=== PATIENT | male | born 1945 | race Caucasian/White ===

== ENCOUNTER 2016-08-07 14:36 | Inpatient (IN) | payer OTHER ==
[~2016-08-07] VITALS: Ht 172.7 cm; Wt 74.8 kg
[~2016-08-07 14:36] MED LIST: ACYC5OIN3 EXT; AMOX500T PO; ASPEC325 PO; CARV6.252 PO; FOLI1TAB7 PO; LISINOPRIL PO; SIMV20TA5 PO; TRIA0.1C55
[2016-08-07] MEDS ORDERED: SODIUM CHLORIDE 0.9% 1000ML 1,000 ML IV SCH (15:05)
--- NOTE | 2016-08-07 15:09 | EMERGENCY ROOM VISIT NOTE ---
History Report prepared by Anya: Ezra Mann Under the Supervision of: Dr. Joel Weiss D.O. First contact with patient: 14:59 Chief Complaint: EYE ASSESSMENT Stated Complaint: LEFT EYE History of Present Illness The patient is a 71 year old male who presents to the Emergency Room with complaints of persistent left eye vision abnormalities that started around 0800 this morning. He saw an bushel worker this morning, and had his eyes dilated. The patient was told to come here to get a scan done. The patient says that his vision is blurry in that eye, and he has been getting double vision as well. He denies any headaches, nausea, vomiting, fevers, chills, abdominal pain, or weakness in his arms or legs. The patient has an enlarged mitral valve, and takes Lisinopril daily. He does not use tobacco products or drink alcohol. Source of History: patient, spouse/significant other Onset: Around 0800 this morning Position: eye (left) Quality: other (vision abnormaliteis - blurry and double vision) Timing: other (persistent) Associated Symptoms: No abdominal pain, No chills, No fevers, No headache, No nausea, No vomiting, No weakness (arms or legs) Note: No other associated symptoms noted. Review of Systems See HPI for pertinent positives & negatives. A total of 10 systems reviewed and were otherwise negative. Past Medical & Surgical Medical Problems: (1) Enlarged mitral valve (2) Lupus Family History Cancer Social History Smoking Status: Never Smoker Drug Use: none Marital Status: single Housing Status: lives alone Occupation Status: retired, other Current/Historical Medications Scheduled Aspirin (Aspirin Ec), 81 MG PO DAILY Carvedilol (Coreg), 6.25 MG PO BID Simvastatin (Zocor), 20 MG PO QPM [Lisinopril ], 20 MG PO BID Allergies Coded Allergies: Bee Venom (Verified Allergy, Severe, SWELLING AT SITE, 08/07/16) Lysine (Verified Allergy, Mild, RASH, 01/10/16) Physical Exam Vital Signs Date Time Temp Pulse Resp B/P Pulse Ox O2 Delivery O2 Flow Rate FiO2 08/07/16 18:06 70 18 143/81 99 Room Air 08/07/16 17:43 36.8 72 16 124/73 08/07/16 16:18 72 16 124/73 98 Room Air 5/18/17 16:02 70 08/07/16 15:35 69 16 128/69 97 Room Air 08/07/16 15:35 97 Room Air 08/07/16 14:39 36.8 82 20 120/78 96 Room Air Physical Exam GENERAL: Patient is awake, alert, and in no acute distress. Patient is resting comfortably and showing no signs of anxiety EYES: Pupils dilated and minimally reactive to light consistent with patient's recent ophthalmologic exam. Patient had inability to look inward with left eye. Patient was able to look upward and minimally downward with left eye. EARS, NOSE, MOUTH AND THROAT: The nose is without any evidence of any deformity. Mucous membranes are moist tongue is midline NECK: The neck is nontender and supple. No Bruit's noted to auscultation. RESPIRATORY: Normal respiratory effort is noted there is no evidence of wheezing rhonchi or rales CARDIOVASCULAR: Regular rate and rhythm noted there, systolic murmur appreciated. GASTROINTESTINAL: The abdomen is soft. Bowel sounds are present in all quadrants. Abdomen is nontender MUSCULOSKELETAL/EXTREMITIES: There is no evidence of gross deformity full range of motion is noted in the hips and shoulders SKIN: No pedal edema. NEUROLOGIC: Patient is awake alert and oriented x3. No facial droop noted. Patellar tendon reflexes were 2+ bilaterally. Medical Decision & Procedures ER Provider Diagnostic Interpretation: Radiology results as stated below per my review and radiologist interpretation: HEAD CTA HISTORY: Mental status change Stroke TECHNIQUE: Multiaxial CT images of the head were performed both before and after the intravenous administration of contrast to evaluate the major cerebral vessels. Maximum intensity projection images were also obtained. COMPARISON: None. FINDINGS: Potential subacute left periventricular infarct left occipital lobe. No evidence for acute intracranial hemorrhage. Visualized intracranial internal carotid arteries, distal vertebral arteries, and basilar artery are widely patent. There is no significant stenosis, occlusion, or aneurysm seen within the bilateral ACAs, MCAs, or stock raiser. IMPRESSION: No significant stenosis, occlusion, or aneurysm within the [place]. Possible subacute infarct left occipital lobe. Mild chronic small vessel change. No acute intracranial hemorrhage. Electronically signed by: Reno Parker M.D. 08/07/2016 4:55 PM Dictated Date/Time: 08/07/2016 4:51 PM CHEST ONE VIEW PORTABLE CLINICAL HISTORY: Stroke COMPARISON STUDY: No previous studies for comparison. FINDINGS: The heart is at the upper limits of normal in size. There is no failure. There is no lobar consolidation. Slightly prominent right basilar markings are felt to be atelectatic.[ IMPRESSION: AP portable study. No acute findings. Electronically signed by: Jack Pritchett M.D. 08/07/2016 3:26 PM Dictated Date/Time: 08/07/2016 3:26 PM NECK CTA HISTORY: Mental status change stroke TECHNIQUE: Multiaxial CT images of the neck were performed following the intravenous administration of contrast to evaluate the major cervical vessels. Maximum intensity projection images were also obtained. All measurements were calculated based on NASCET criteria. COMPARISON STUDY: None. FINDINGS: The aortic arch and proximal great vessels are widely patent. There is no significant stenosis, occlusion, or dissection identified within the bilateral common carotid, internal carotid, or vertebral arteries. Mild atherosclerotic change carotid bifurcations IMPRESSION: No significant stenosis, occlusion, or dissection identified within the carotid or vertebral arteries. Mild scattered atherosclerotic change Electronically signed by: Reno Parker M.D. 08/07/2016 4:57 PM Dictated Date/Time: 08/07/2016 4:57 PM Laboratory Results 08/07/16 15:17 Red Blood Count 4.51, Mean Corpuscular Volume 89.6, Mean Corpuscular Hemoglobin 30.6, Mean Corpuscular Hemoglobin Concent 34.2, Mean Platelet Volume 9.7, Neutrophils (%) (Auto) 61.1, Lymphocytes (%) (Auto) 24.1, Monocytes (%) (Auto) 10.3, Eosinophils (%) (Auto) 2.9, Basophils (%) (Auto) 0.4, Neutrophils # (Auto ) 2.96, Lymphocytes # (Auto) 1.17, Monocytes # (Auto) 0.50, Eosinophils # (Auto ) 0.14, Basophils # (Auto) 0.02 08/07/16 15:17 Test 08/07/16 15:17 White Blood Count 4.85 K/uL (4.8-10.8) Red Blood Count 4.51 M/uL (4.7-6.1) Hemoglobin 13.8 g/dL (14.0-18.0) Hematocrit 40.4 % (42-52) Mean Corpuscular Volume 89.6 fL (80-100) Mean Corpuscular Hemoglobin 30.6 pg (25-34) Mean Corpuscular Hemoglobin Concent 34.2 g/dl (32-36) Platelet Count 161 K/uL (130-400) Mean Platelet Volume 9.7 fL (7.4-10.4) Neutrophils (%) (Auto) 61.1 % Lymphocytes (%) (Auto) 24.1 % Monocytes (%) (Auto) 10.3 % Eosinophils (%) (Auto) 2.9 % Basophils (%) (Auto) 0.4 % Neutrophils # (Auto) 2.96 K/uL (1.4-6.5) Lymphocytes # (Auto) 1.17 K/uL (1.2-3.4) Monocytes # (Auto) 0.50 K/uL (0.11-0.59) Eosinophils # (Auto) 0.14 K/uL (0-0.5) Basophils # (Auto) 0.02 K/uL (0-0.2) RDW Standard Deviation 44.6 fL (36.4-46.3) RDW Coefficient of Variation 13.5 % (11.5-14.5) Immature Granulocyte % (Auto) 1.2 % Immature Granulocyte # (Auto) 0.06 K/uL (0.00-0.02) Red Blood Cell Morphology Unremarkable Prothrombin Time 11.4 SECONDS (9.0-12.0) Prothromb Time International Ratio 1.1 (0.9-1.1) Activated Partial Thromboplast Time 33.6 SECONDS (21.0-31.0) Partial Thromboplastin Ratio 1.3 Anion Gap 10.0 mmol/L (3-11) Est Creatinine Clear Calc Drug Dose 56.2 ml/min Estimated GFR () 71.1 Estimated GFR (Non- 61.3 BUN/Creatinine Ratio 22.9 (10-20) Calcium Level 9.0 mg/dl (8.5-10.1) Total Bilirubin 0.7 mg/dl (0.2-1) Direct Bilirubin 0.2 mg/dl (0-0.2) Aspartate Amino Transf (AST/SGOT) 22 U/L (15-37) Alanine Aminotransferase (ALT/SGPT) 28 U/L (12-78) Alkaline Phosphatase 78 U/L (45-117) Total Creatine Kinase 86 U/L (39-308) Creatine Kinase MB 2.4 ng/ml (0.5-3.6) Creatine Kinase MB Ratio 2.8 (0-3.0) Troponin I 0.603 ng/ml (0-0.045) Total Protein 7.9 gm/dl (6.4-8.2) Albumin 3.4 gm/dl (3.4-5.0) Lyme Disease IgG Antibody NEG (NEG) Lyme Disease IgM Antibody NEG (NEG) Laboratory results per my review. Medications Administered Medications (Trade) Dose Ordered Sig/Apollo Route Start Time Stop Time Status Last Admin Dose Admin Sodium Chloride (Nss 1000ml) 1,000 ml @ 50 mls/hr Q20H IV 08/07/16 15:05 09/06/16 15:04 08/07/16 15:40 50 MLS/HR ECG Indication: other (left eye assessment) Rate (beats per minute): 74 Rhythm: normal sinus Findings: no ectopy, other (no acute ST segment abnormalities) Comparison ECG Date: no prior available ED Course 1500: The patient was evaluated in room B4B. A complete history and physical examination were performed. 1505: Ordered NSS 1000 ml @ 50 mls/hr IV. 1701: Ordered Aspirin Chew 324 mg PO. 1704: I reevaluated the patient and he is resting comfortably. The patient verbally expressed understanding and agreement with the treatment plan. The patient will be evaluated for further treatment. 1705: I discussed the patient with Dr. Jimenez - [facility] seismograph supervisor. He will evaluate the patient for further treatment. 1724: I discussed the patient with Dr. Satinder Pelaez [facility] neurology - she recommends a formal stroke workup. Medical Decision Prior records/ancillary studies reviewed and summarized above. Nursing notes reviewed. Differential diagnosis: Etiologies such as metabolic, infection, hypo/hyperglycemia, electrolyte abnormalities, cardiac sources, intracerebral event, toxicologic, neurologic, as well as others were entertained. The patient is a 71-year-old male who presented to the emergency department for an evaluation of diplopia. The patient noticed diplopia, as well as difficulty with his left eye. His morning. The patient had no other focal neurological is. He was sent to the ophthalmology despite his primary care physician. He was sent to the emergency department by the bushel worker for possible further evaluation. The patient had a CAT scan which showed an area of questionable occipital infarct. He was treated with aspirin in the emergency department. The left eye was patched and this helped with his symptoms somewhat. I discussed the patient's laboratory and radiographic studies with him. It is unclear if this is from an embolic phenomena, however, there is no occlusion noted on CT angiography of the brain. The patient does have a family history of factor V Leiden. The patient also has a history of valvular heart disease. It is possible he may have had an embolic phenomena or possibly paroxysmal atrial fibrillation. I discussed the patient's case with the on-call [facility] neurologist as well as the on-call [facility] hospitalist. They've agreed to evaluate the patient in emergency department for further management and disposition. I discussed the patient's laboratory and radiographic studies with him Consults Time Called: 1700 Consulting Physician: Dr. Tony BACK seismograph supervisor Returned Call: 1705 I discussed the patient with Dr. Tony BACK seismograph supervisor. He will evaluate the patient for further treatment. Additional Consults: Time Called: 1710 Consulted Physician: Dr. Satinder BACK neurology Returned Call: [phone] Additional Comments: I discussed the patient with Dr. Satinder BACK neurology - she recommends a formal stroke workup. Impression Primary Impression: Occipital stroke Additional Impressions: Diplopia Cranial nerve III palsy Elevated troponin Scribe Attestation The scribe's documentation has been prepared under my direction and personally reviewed by me in its entirety. I confirm that the note above accurately reflects all work, treatment, procedures, and medical decision making performed by me. Departure Information Dispostion Being Evaluated By Hospitalist Referrals Clarisa Hale PA-C (PCP) Patient Instructions My [facility] Problem Qualifiers Additional Impressions: Cranial nerve III palsy Laterality: left Qualified Codes: H49.02 - Third [oculomotor] nerve palsy, left eye
[2016-08-07] MEDS ORDERED: ASPI81TA28 PO (15:11)
--- NOTE | 2016-08-07 15:28 | DIAGNOSTIC IMAGING REPORT ---
CHEST ONE VIEW PORTABLE CLINICAL HISTORY: Stroke COMPARISON STUDY: No previous studies for comparison. FINDINGS: The heart is at the upper limits of normal in size. There is no failure. There is no lobar consolidation. Slightly prominent right basilar markings are felt to be atelectatic.[ IMPRESSION: AP portable study. No acute findings. Electronically signed by: Jack Pritchett M.D. 08/07/2016 3:26 PM Dictated Date/Time: 08/07/2016 3:26 PM
[2016-08-07 15:38] LABS: HEMATOCRIT 40.4 % (42-52); MEAN CELL VOLUME 89.6 fL (80-100); MEAN CORPUSCULAR HEMOGLOBIN 30.6 pg (25-34); MEAN CORPUSCULAR HGB CONC 34.2 g/dl (32-36); MEAN PLATELET VOLUME 9.7 fL (7.4-10.4); PLATELET COUNT 161 K/uL (130-400); RED BLOOD COUNT 4.51 M/uL (4.7-6.1); WHITE BLOOD COUNT 4.85 K/uL (4.8-10.8)
[2016-08-07 15:49] LABS: INR 1.1 (0.9-1.1); PARTIAL THROMBOPLASTIN RATIO 1.3; PROTHROMBIN TIME (PATIENT) 11.4 SECONDS (9.0-12.0)
[2016-08-07 16:03] LABS: BUN/CREATININE RATIO 22.9 (10-20); CREATININE 1.2 mg/dl (0.60-1.40); POTASSIUM 4.2 mmol/L (3.5-5.1)
[2016-08-07 16:09] LABS: BASO % 0.4 %; BASO ABS # 0.02 K/uL (0-0.2); COMPLETE YES; EOS % 2.9 %; IG% 1.2 %; LYMPH % 24.1 %; LYMPH ABS # 1.17 K/uL (1.2-3.4); MONO % 10.3 %; NEUT % 61.1 %
[2016-08-07 16:21] LABS: CKMB/CK RATIO 2.8 (0-3.0)
--- NOTE | 2016-08-07 16:56 | DIAGNOSTIC IMAGING REPORT ---
HEAD CTA HISTORY: Mental status change Stroke TECHNIQUE: Multiaxial CT images of the head were performed both before and after the intravenous administration of contrast to evaluate the major cerebral vessels. Maximum intensity projection images were also obtained. COMPARISON: None. FINDINGS: Potential subacute left periventricular infarct left occipital lobe. No evidence for acute intracranial hemorrhage. Visualized intracranial internal carotid arteries, distal vertebral arteries, and basilar artery are widely patent. There is no significant stenosis, occlusion, or aneurysm seen within the bilateral ACAs, MCAs, or drywall hanger helper. IMPRESSION: No significant stenosis, occlusion, or aneurysm within the [place]. Possible subacute infarct left occipital lobe. Mild chronic small vessel change. No acute intracranial hemorrhage. Electronically signed by: Reno Parker M.D. 08/07/2016 4:55 PM Dictated Date/Time: 08/07/2016 4:51 PM
--- NOTE | 2016-08-07 16:59 | DIAGNOSTIC IMAGING REPORT ---
NECK CTA HISTORY: Mental status change stroke TECHNIQUE: Multiaxial CT images of the neck were performed following the intravenous administration of contrast to evaluate the major cervical vessels. Maximum intensity projection images were also obtained. All measurements were calculated based on NASCET criteria. COMPARISON STUDY: None. FINDINGS: The aortic arch and proximal great vessels are widely patent. There is no significant stenosis, occlusion, or dissection identified within the bilateral common carotid, internal carotid, or vertebral arteries. Mild atherosclerotic change carotid bifurcations IMPRESSION: No significant stenosis, occlusion, or dissection identified within the carotid or vertebral arteries. Mild scattered atherosclerotic change Electronically signed by: Reno Parker M.D. 08/07/2016 4:57 PM Dictated Date/Time: 08/07/2016 4:57 PM
[2016-08-07] MEDS ORDERED: ASPIRIN 81 MG CHEW PO STA (17:01)
[2016-08-07 17:15] LABS: LYME DISEASE AB IGG NEG (NEG)
[2016-08-07 17:16] LABS: LYME DISEASE AB IGM NEG (NEG)
[2016-08-07 17:43] VITALS: BP 124/73; PULSE 72; TEMP 36.8; O2SAT 99; Ht 172.7 cm; Wt 74.8 kg
[2016-08-07] MEDS ORDERED: POLYETHYLENE (MIRALAX) 17 GM PACK PO PRN (18:30)
[2016-08-07] MEDS ORDERED: MAGNESIUM HYDROXIDE SUSP 30 ML UDC PO PRN (18:30)
[2016-08-07] MEDS ORDERED: ONDANSETRON INJ 2 MG/ML 2 ML VIAL IV PRN (18:30)
[2016-08-07] MEDS ORDERED: PHARMACIST DISCHARGE MED REC CONSULT PRN ×2 (18:30→19:15)
[2016-08-07] MEDS ORDERED: ALUMINUM/MAGNESIUM/SIMETH (MAALOX MAX) 30 ML UDC PO PRN (18:30)
--- NOTE | 2016-08-07 19:24 | History and Physical ---
History & Physical Date & Time of Service: August 07, 2016 at 18:41 Chief Complaint: Left Eye Primary Care Physician: Clarisa Hale PA-C History of Present Illness Source: patient 71 year old male with a PMH of cutaneous lupus and mitral regurgitation with a 1 day history of blurry vision. He says both his central and peripheral vision are affected. He did not experience any eye pain or any abnormal discharge from his eye He woke up this morning felt his normal self. Shortly after making a phone call to a family friend he started experiencing blurred vision. The change in vision was sudden. He then phoned his in-law to go to the doctor. When his in-law saw him she noticed that he his eye was looking out to the side. They went to their family doc who sent them to [facility] who then sent him into the emergency department. He didn't experience any headache, facial weakness, slurred speech, difficulty swallowing, arm weakness, leg weakness, neck stiffness, palpitations, chest pain , dizziness, shortness of breath, or cough. 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 Family History Cancer Father- 70's brain cancer Mother- 70's ovarian cancer Uncle- 70's stroke and [place] Aunt- 70's [place] and lung disease Brother- skin cancer Brother- Factor V leiden Nephew- Factor V leiden Social History Smoking Status: Never Smoker Alcohol Use: none Drug Use: none Marital Status: single Housing status: lives alone Occupational Status: retired, other Immunizations History of Influenza Vaccine: Unknown History of Tetanus Vaccine?: Unknown History of Pneumococcal: Yes History of Hepatitis B Vaccine: No Multi-Drug Resistant Organisms History of MDRO: No Allergies Coded Allergies: Bee Venom (Verified Allergy, Severe, SWELLING AT SITE, 08/07/16) Lysine (Verified Allergy, Mild, RASH, 01/10/16) Home Medications Scheduled Aspirin (Aspirin Ec), 81 MG PO DAILY Carvedilol (Coreg), 6.25 MG PO BID Simvastatin (Zocor), 20 MG PO QPM [Lisinopril ], 20 MG PO BID Review of Systems Please see HPI for ROS Physical Exam Vital Signs Date Time Temp Pulse Resp B/P Pulse Ox O2 Delivery O2 Flow Rate FiO2 08/07/16 18:06 70 18 143/81 99 Room Air 08/07/16 17:43 36.8 72 16 124/73 99 Room Air 08/07/16 16:18 72 16 124/73 98 Room Air 08/07/16 16:02 70 08/07/16 15:35 69 16 128/69 97 Room Air 08/07/16 15:35 97 Room Air 08/07/16 14:39 36.8 82 20 120/78 96 Room Air General Appearance: WD/WN, no apparent distress, + pertinent finding (patient with speech impediment, wearing a patch over left eye) Head: normocephalic, atraumatic Eyes: + abnormal EOM (patient unable to adduct left eye, unable to vertically gaze with left eye), + pertinent finding (pupils minimally reactive to light bilaterally, left eye directed down and out) ENT: hearing grossly normal, TMs normal Neck: supple, no adenopathy, thyroid normal, no JVD, no carotid bruits, trachea midline Respiratory/Chest: chest non-tender, lungs clear, normal breath sounds, no respiratory distress, no accessory muscle use Cardiovascular: regular rate, rhythm, no edema, no JVD, normal peripheral pulses, + diastolic murmur (best heard over the mitral valve, radiation to the axilla) Abdomen/GI: normal bowel sounds, non tender, soft, no organomegaly, no pulsatile mass Back: normal inspection, no CVA tenderness, no muscle spasm Extremities/Musculoskelatal: normal capillary refill, no pedal edema, + pertinent finding (has a bandage over left lower extremity for debridement of wood chip stuck in leg, surrounding erythema around bandage) Neurologic/Psych: forestry supervisor II-XII nml as tested, no motor/sensory deficits, alert, normal mood/affect, oriented x 3 Diagnostics Laboratory Results Results Past 24 Hours Test 08/07/16 15:17 Range/Units White Blood Count 4.85 4.8-10.8 K/uL Red Blood Count 4.51 4.7-6.1 M/uL Hemoglobin 13.8 14.0-18.0 g/dL Hematocrit 40.4 42-52 % Mean Corpuscular Volume 89.6 80-100 fL Mean Corpuscular Hemoglobin 30.6 25-34 pg Mean Corpuscular Hemoglobin Concent 34.2 32-36 g/dl Platelet Count 161 130-400 K/uL Mean Platelet Volume 9.7 7.4-10.4 fL Neutrophils (%) (Auto) 61.1 % Lymphocytes (%) (Auto) 24.1 % Monocytes (%) (Auto) 10.3 % Eosinophils (%) (Auto) 2.9 % Basophils (%) (Auto) 0.4 % Neutrophils # (Auto) 2.96 1.4-6.5 K/uL Lymphocytes # (Auto) 1.17 1.2-3.4 K/uL Monocytes # (Auto) 0.50 0.11-0.59 K/uL Eosinophils # (Auto) 0.14 0-0.5 K/uL Basophils # (Auto) 0.02 0-0.2 K/uL RDW Standard Deviation 44.6 36.4-46.3 fL RDW Coefficient of Variation 13.5 11.5-14.5 % Immature Granulocyte % (Auto) 1.2 % Immature Granulocyte # (Auto) 0.06 0.00-0.02 K/uL Red Blood Cell Morphology Unremarkable Prothrombin Time 11.4 9.0-12.0 SECONDS Prothromb Time International Ratio 1.1 0.9-1.1 Activated Partial Thromboplast Time 33.6 21.0-31.0 SECONDS Partial Thromboplastin Ratio 1.3 Sodium Level 141 136-145 mmol/L Potassium Level 4.2 3.5-5.1 mmol/L Chloride Level 108 98-107 mmol/L Carbon Dioxide Level 23 21-32 mmol/L Anion Gap 10.0 3-11 mmol/L Blood Urea Nitrogen 27 7-18 mg/dl Creatinine 1.20 0.60-1.40 mg/dl Est Creatinine Clear Calc Drug Dose 56.2 ml/min Estimated GFR () 71.1 Estimated GFR (Non- 61.3 BUN/Creatinine Ratio 22.9 10-20 Random Glucose 86 70-99 mg/dl Calcium Level 9.0 8.5-10.1 mg/dl Total Bilirubin 0.7 0.2-1 mg/dl Direct Bilirubin 0.2 0-0.2 mg/dl Aspartate Amino Transf (AST/SGOT) 22 15-37 U/L Alanine Aminotransferase (ALT/SGPT) 28 12-78 U/L Alkaline Phosphatase 78 45-117 U/L Total Creatine Kinase 86 39-308 U/L Creatine Kinase MB 2.4 0.5-3.6 ng/ml Creatine Kinase MB Ratio 2.8 0-3.0 Troponin I 0.603 0-0.045 ng/ml Total Protein 7.9 6.4-8.2 gm/dl Albumin 3.4 3.4-5.0 gm/dl Lyme Disease IgG Antibody NEG NEG Lyme Disease IgM Antibody NEG NEG Diagnostic Radiology CT angio of head COMPARISON STUDY: None. FINDINGS: The aortic arch and proximal great vessels are widely patent. There is no significant stenosis, occlusion, or dissection identified within the bilateral common carotid, internal carotid, or vertebral arteries. Mild atherosclerotic change carotid bifurcations IMPRESSION: No significant stenosis, occlusion, or dissection identified within the carotid or vertebral arteries. Mild scattered atherosclerotic change HEAD CTA HISTORY: Mental status change Stroke TECHNIQUE: Multiaxial CT images of the head were performed both before and after the intravenous administration of contrast to evaluate the major cerebral vessels. Maximum intensity projection images were also obtained. COMPARISON: None. FINDINGS: Potential subacute left periventricular infarct left occipital lobe. No evidence for acute intracranial hemorrhage. Visualized intracranial internal carotid arteries, distal vertebral arteries, and basilar artery are widely patent. There is no significant stenosis, occlusion, or aneurysm seen within the bilateral ACAs, MCAs, or director marketing communications. IMPRESSION: No significant stenosis, occlusion, or aneurysm within the [place]. Possible subacute infarct left occipital lobe. Mild chronic small vessel change. No acute intracranial hemorrhage. CXR normal Normal EKG Impression Assessment and Plan 71 year old male with a PMH of cutaneous lupus and mitral valve enlargement presented to [facility] with blurred vision and found to have a 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 Stroke - Given aspirin 325mg - Continue aspirin 81mg daily, will add plavix QAM - Order MRA head, MRI brain and Carotid ultrasound - Echo ordered - Ordered HbA1c and fasting lipid profile - Ordered Factor V leiden, antiphospholipid, anticardiolipin antibodies - Regular neuro checks - Consult Neuro - PT/OT - Speech eval - Elevated troponin 0.6--> consult cardiology Mitral Valve Enlargement - will order echo - continue simvastatin, continue carvedilol, continue lisinopril Cutaneous Lupus - follow with Derm Dispo - telemetry Resident Physician Supervision Note: I was present with [Name of resident] during the history and exam. I discussed the case with the resident and agree with the findings and plan as documented in the note. Any exceptions or clarifications are listed here: 71 y/o M Hx cutaneous lupus, mitral valve disorder Pt presents from opt for CN3 palsy - acute since AM - r/o CVA He has had no cardiac symptoms and does not currently have EKG changes or CP however his troponin is significantly elevated at 0.6 OE AAO x 3 S1,2 R CTAB NT, ND Cannot look L or R with L eye - vision intact on R Erythematous macular rash noted over extrems and neck/trunk P: Case was discussed with neuro Plavix and Statin provided and pt scheduled for MRI/MRI carotid dopplers Regarding his trop - we will obtain an echo and trend enzymes - cardiology will be consulted as we do not currently have an etiology for this - would consider full dose anticoagulation of trop trends upward although this may not be optimal management for an acute CVA Documented By: Nader Jimenez Level of Care Telemetry Advanced Directives Existing Living Will: No Existing Power of Sausage Wrapper: No VTE Prophylaxis VTE Risk Assessment Done? Y/N: Yes Risk Level: High Given or contraindicated: Other Anticoagulation
[2016-08-07 20:28] LABS: URINE APPEARANCE CLEAR (CLEAR); URINE BILIRUBIN NEG (NEG); URINE COLOR YELLOW; URINE EPITHELIAL CELL AUTO 20-30 /lpf (0-5); URINE NITRITE NEG (NEG); URINE SPECIFIC GRAVITY > 1.045 (1.000-1.030); UROBILINOGEN NEG (NEG); ZZUR CULT IF INDIC CLEAN CATCH NO
[2016-08-07 20:31] LABS: MANUAL MICROSCOPIC REQUIRED? NO; REVIEW REQ? NO
[2016-08-07] MEDS ORDERED: SIMVASTATIN 20 MG TAB PO SCH (21:00)
--- NOTE | 2016-08-07 21:11 | DIAGNOSTIC IMAGING REPORT ---
Brain MRI WITHOUT CONTRAST HISTORY: Mental status change Stroke TECHNIQUE: Multiplanar multisequence MRI of the brain was performed without the use of contrast. COMPARISON STUDY: None. FINDINGS: Diffusion-weighted images demonstrate punctate foci of acute ischemic change involving both cerebellar hemispheres, as well as scattered cortical and subcortical regions of the cerebral hemispheres bilaterally. Mild chronic small vessel change throughout both cerebral hemispheres. Ventricular system is midline. Sella and parasellar regions are unremarkable. Internal artery canals are symmetric. IMPRESSION: Scattered punctate foci of acute ischemic change throughout the cerebellar as well as cerebral hemispheres. All findings are peripheral in location consistent with small vessel change Electronically signed by: Reno Parker M.D. 08/07/2016 9:10 PM Dictated Date/Time: 08/07/2016 9:07 PM
--- NOTE | 2016-08-07 21:19 | DIAGNOSTIC IMAGING REPORT ---
NECK MRA HISTORY: Mental status change Stroke TECHNIQUE: [id number] and gadolinium-enhanced MRA of the neck was performed both before and after the intravenous administration of contrast. All measurements were calculated based on NASCET criteria. COMPARISON STUDY: CTA same date FINDINGS: The aortic arch and proximal great vessels are widely patent. There is no significant stenosis, occlusion, or dissection identified within the bilateral common carotid, internal carotid, or vertebral arteries. Right vertebral artery is small in caliber up presumably on a congenital basis. There is mild plaque dimension of the carotid bifurcations with no major stenotic process. Probable atherosclerotic narrowing of the distal vertebral artery. IMPRESSION: 1. Small caliber right vertebral artery with superimposed atherosclerotic narrowing at its distal aspect. 2. Minimal/mild atherosclerotic change carotid bifurcations with no significant stenotic process. Electronically signed by: Reno Parker M.D. 08/07/2016 9:18 PM Dictated Date/Time: 08/07/2016 9:14 PM
--- NOTE | 2016-08-07 21:25 | DIAGNOSTIC IMAGING REPORT ---
Brain MRA HISTORY: Stroke Stroke - Attention to [place] [facility] [place] TECHNIQUE: 3-D [id number] MRA of the brain was performed without contrast. COMPARISON STUDY: CTA same date FINDINGS: Dominant left vertebral artery. Right vertebral artery is congenitally small with superimposed considerable atherosclerotic change distally. It has very small caliber at its distal margins. Structures the anterior and middle cerebral circulations demonstrate slight vascular truncation at its extreme peripheral margins. A major central stenotic process is not seen. Major vascular occlusion is not identified. There is no evidence for aneurysmal distention. IMPRESSION: 1. Slight truncation of the extreme peripheral vasculature of the anterior middle and posterior cerebral circulation, consistent with peripheral small vessel narrowing. 2. Very small caliber right vertebral artery presumably on a congenital basis with superimposed narrowing at its distal margins presumably atherosclerotic. 3. Left vertebral artery is dominant with the basilar artery unremarkable. 4. No evidence for aneurysmal dilatation Electronically signed by: Reno Parker M.D. 08/07/2016 9:23 PM Dictated Date/Time: 08/07/2016 9:18 PM
--- NOTE | 2016-08-07 21:51 | DIAGNOSTIC IMAGING REPORT ---
BILATERAL CAROTID DOPPLER STUDY HISTORY: Mental status change Stroke COMPARISON: None. TECHNIQUE: Real-time, grayscale, and color Doppler sonography of the carotid arteries was performed. Imaging reviewed in the transverse and longitudinal planes. All measurements were calculated based on NASCET criteria. FINDINGS: Antegrade flow is seen in the bilateral vertebral arteries. The brachial pressures are hemodynamically similar. Minimal plaque formation bilaterally The peak systolic velocity within the right ICA is 80. The right systolic ratio is 0.8. The peak systolic velocity within the left ICA is 110. The left systolic ratio is 1.0. IMPRESSION: No hemodynamically significant stenosis seen within the carotid arteries. Antegrade flow is present in the vertebral vessels. Minimal plaque formation Electronically signed by: Reno Parker M.D. 08/07/2016 9:49 PM Dictated Date/Time: 08/07/2016 9:48 PM
[2016-08-07 21:58] VITALS: BP 134/81; PULSE 78; TEMP 36.4; O2SAT 95
[2016-08-07] MEDS: CARVEDILOL 6.25 MG TAB PO SCH (22:22)
[2016-08-07] MEDS: LISINOPRIL 20 MG TAB PO SCH (22:22)
[2016-08-07] MEDS: HEPARIN SOD 5000 UNIT/0.5 ML CARP SQ SCH (22:24)
[2016-08-07 22:26] LABS: INR 1.1 (0.9-1.1); PARTIAL THROMBOPLASTIN RATIO 1.2; PROTHROMBIN TIME (PATIENT) 11.4 SECONDS (9.0-12.0)
[2016-08-07] MEDS: SODIUM CHLORIDE 0.9% 1000ML 1,000 ML IV SCH (22:27)
[2016-08-07 23:27] VITALS: BP 125/67; PULSE 62; TEMP 36.7; O2SAT 98
[2016-08-08] VITALS (7 sets, daily range): BP systolic 102–136; BP diastolic 63–78; PULSE 67–81; TEMP 36.4–37.1; O2SAT 95–99
[2016-08-08] MEDS: HEPARIN SOD 5000 UNIT/0.5 ML CARP SQ SCH ×3 (05:50→22:00)
[2016-08-08 06:01] LABS: ESTIMATED AVERAGE GLUCOSE 120 mg/dl; HA1C FLAG Normal (Normal)
[2016-08-08 07:43] LABS: BLOOD UREA NITROGEN 26 mg/dl (7-18); BUN/CREATININE RATIO 21.9 (10-20); CALCIUM 8.7 mg/dl (8.5-10.1); CARBON DIOXIDE 25 mmol/L (21-32); CHLORIDE 109 mmol/L (98-107); GLUCOSE 77 mg/dl (70-99); SODIUM 140 mmol/L (136-145)
[2016-08-08 07:45] LABS: CHOLESTEROL 116 mg/dl (0-200); CHOLESTEROL/HDL RATIO 3.6; HDL CHOLESTEROL 32 mg/dl; LDL CHOLESTEROL CALCULATED 69 mg/dl; TRIGLYCERIDES 77 mg/dl (0-150); VERY LOW DENSITY LIPOPROT CALC 15 mg/dl
--- NOTE | 2016-08-08 08:22 | Hospitalist Progress Note ---
Hospitalist Progress Note Date of Service August 08, 2016. Subjective Pt evaluation today including: conversation w/ patient, physical exam, chart review, lab review, review of studies Pain: None PO Intake: Good Voiding: no voiding problems The patient was seen and examined this morning. Pt reports his vision in the left eye is still blurred with diplopia. He is able to speak with me without difficulty, although his speech is garbled. He can remember events yesterday and can recall the events of how he got to the hospital. Pt reports he had eggs and toast for breakfast today. He denies any other acute complaints including weakness or fatigue, trouble ambulating, difficulty with movements in his arms. Denies cp or sob, fevers, chills, sweats. ROS: 10 point ROS was obtained and is otherwise negative. Objective Vital Signs Date Time Temp Pulse Resp B/P Pulse Ox O2 Delivery O2 Flow Rate FiO2 08/08/16 04:08 36.5 67 19 102/64 96 Room Air 08/08/16 04:00 Room Air 08/08/16 00:00 Room Air 08/07/16 23:27 36.7 62 18 125/67 98 Room Air 08/07/16 21:58 36.4 78 17 134/81 95 Room Air 08/07/16 19:58 78 16 137/96 98 Room Air 08/07/16 18:06 70 18 143/81 99 Room Air 08/07/16 17:43 36.8 72 16 124/73 99 Room Air 08/07/16 16:18 72 16 124/73 98 Room Air 08/07/16 16:02 70 08/07/16 15:35 69 16 128/69 97 Room Air 08/07/16 15:35 97 Room Air 08/07/16 14:39 36.8 82 20 120/78 96 Room Air Physical Exam General Appearance: WD/WN, no apparent distress Eyes: + pertinent finding (+ palsey with EOMI in left eye, diminished peripheral visual schmidt in left eye, PERRL. ) ENT: hearing grossly normal, pharynx normal, + pertinent finding (speech is garbled) Neck: supple, no JVD Respiratory/Chest: chest non-tender, lungs clear, no respiratory distress, no accessory muscle use Cardiovascular: regular rate, rhythm, + systolic murmur (III/) Abdomen: normal bowel sounds, non tender, soft, no organomegaly Extremities: normal range of motion, non-tender, no pedal edema, no calf tenderness Neurologic/Psychiatric: alert, normal mood/affect, oriented x 3, + pertinent finding (CN III deficit, speech garbled. Can wrinkle his forehead and smile equally, can puff out his cheeks, good shoulder shrug, no pronator drift, strenght in UE and LE is equal bilaterally, sensation to light touch intact. Gait was not assessed. ) Skin: normal color, warm/dry, + pertinent finding (slightly erythematous region over dorsal aspect both hands, upper back, and chest from lupus. ) Laboratory Results Last 24 Hours Test 08/07/16 15:17 08/07/16 20:00 08/07/16 22:03 08/08/16 06:09 White Blood Count 4.85 K/uL Red Blood Count 4.51 M/uL Hemoglobin 13.8 g/dL Hematocrit 40.4 % Mean Corpuscular Volume 89.6 fL Mean Corpuscular Hemoglobin 30.6 pg Mean Corpuscular Hemoglobin Concent 34.2 g/dl Platelet Count 161 K/uL Mean Platelet Volume 9.7 fL Neutrophils (%) (Auto) 61.1 % Lymphocytes (%) (Auto) 24.1 % Monocytes (%) (Auto) 10.3 % Eosinophils (%) (Auto) 2.9 % Basophils (%) (Auto) 0.4 % Neutrophils # (Auto) 2.96 K/uL Lymphocytes # (Auto) 1.17 K/uL Monocytes # (Auto) 0.50 K/uL Eosinophils # (Auto) 0.14 K/uL Basophils # (Auto) 0.02 K/uL RDW Standard Deviation 44.6 fL RDW Coefficient of Variation 13.5 % Immature Granulocyte % (Auto) 1.2 % Immature Granulocyte # (Auto) 0.06 K/uL Red Blood Cell Morphology Unremarkable Prothrombin Time 11.4 SECONDS 11.4 SECONDS Prothromb Time International Ratio 1.1 1.1 Activated Partial Thromboplast Time 33.6 SECONDS 32.1 SECONDS Partial Thromboplastin Ratio 1.3 1.2 Sodium Level 141 mmol/L 140 mmol/L Potassium Level 4.2 mmol/L mmol/L Chloride Level 108 mmol/L 109 mmol/L Carbon Dioxide Level 23 mmol/L 25 mmol/L Anion Gap 10.0 mmol/L 6.0 mmol/L Blood Urea Nitrogen 27 mg/dl 26 mg/dl Creatinine 1.20 mg/dl 1.20 mg/dl Est Creatinine Clear Calc Drug Dose 56.2 ml/min 56.2 ml/min Estimated GFR () 71.1 71.1 Estimated GFR (Non- 61.3 61.3 BUN/Creatinine Ratio 22.9 21.9 Random Glucose 86 mg/dl 77 mg/dl Estimated Average Glucose 120 mg/dl Hemoglobin A1c 5.8 % Calcium Level 9.0 mg/dl 8.7 mg/dl Total Bilirubin 0.7 mg/dl Direct Bilirubin 0.2 mg/dl Aspartate Amino Transf (AST/SGOT) 22 U/L Alanine Aminotransferase (ALT/SGPT) 28 U/L Alkaline Phosphatase 78 U/L Total Creatine Kinase 86 U/L Creatine Kinase MB 2.4 ng/ml Creatine Kinase MB Ratio 2.8 Troponin I 0.603 ng/ml 0.642 ng/ml 0.579 ng/ml Total Protein 7.9 gm/dl Albumin 3.4 gm/dl Lyme Disease IgG Antibody NEG Lyme Disease IgM Antibody NEG Hepatitis C Antibody Screen NEG Urine Color YELLOW Urine Appearance CLEAR Urine pH 5.0 Urine Specific [place] > 1.045 Urine Protein NEG Urine Glucose (UA) NEG Urine Ketones NEG Urine Occult Blood 1+ Urine Nitrite NEG Urine Bilirubin NEG Urine Urobilinogen NEG Urine Leukocyte Esterase NEG Urine WBC (Auto) 1-5 /hpf Urine RBC (Auto) 5-10 /hpf Urine Hyaline Casts (Auto) 1-5 /lpf Urine Epithelial Cells (Auto) 20-30 /lpf Urine Bacteria (Auto) NEG Triglycerides Level 77 mg/dl Cholesterol Level 116 mg/dl HDL Cholesterol 32 mg/dl LDL Cholesterol, Calculated 69 mg/dl VLDL Cholesterol, Calculated 15 mg/dl Cholesterol/HDL Ratio 3.6 Test 08/08/16 07:43 08/08/16 07:44 Assessment and Plan 71 year 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 Occipital embolic stroke, - Continue aspirin 81mg daily, will add plavix QAM - Order MRA head, MRI brain and Carotid ultrasound MRI brain:IMPRESSION: Scattered punctate foci of acute ischemic change throughout the cerebellar as well as cerebral hemispheres. All findings are peripheral in location consistent with small vessel change - Will allow for permissive hypertension by holding lisinopril and coreg for now - SBP between 150-180 for adequate perfusion - NIH score of 3 + extraocular movement impaired, +rigid EOM of left eye, + diminished visual schmidt. - TTE Echo ordered - HbA1c is 5.8, lipid panel is within normal limits - Ordered Factor V leiden, antiphospholipid, anticardiolipin antibodies - all in process - neuro checks Q2H for first 12 hours then Q4H - Consult Neurology- appreciate recs - PT/OT on board - Speech eval completed and pt passed Elevated troponin - Cardiac biomarkers were trened due to initially elevated trop 0.603--> 0.642-- > 0.579--> consult cardiology - Regarding his trop - we will obtain an echo and trend enzymes - cardiology will be consulted as we do not currently have an etiology for this - would consider full dose anticoagulation of trop trends upward although this may not be optimal management for an acute CVA Mitral Valve Enlargement - will order echo - continue simvastatin - Holding coreg and lisinopril as above. Cutaneous Lupus - Stable DVT ppx: teds, scds, ASA and plavix on board CODE STATUS: FULL CODE Disposition: From home, lives alone, CM to assist with discharge needs
[2016-08-08 08:33] LABS: HEMATOCRIT 39.1 % (42-52); MEAN CELL VOLUME 90.7 fL (80-100); MEAN CORPUSCULAR HEMOGLOBIN 31.8 pg (25-34); PLATELET COUNT 145 K/uL (130-400); RED BLOOD COUNT 4.31 M/uL (4.7-6.1); WHITE BLOOD COUNT 3.94 K/uL (4.8-10.8)
[2016-08-08 08:46] LABS: BASO % 2.5 %; COMPLETE YES; EOS % 3.6 %; IG% 0.8 %; LARGE PLATELETS 1+; LYMPH % 20.8 %; LYMPH ABS # 0.82 K/uL (1.2-3.4); MONO % 13.7 %; NEUT % 58.6 %; OVALOCYTES 1+; TEAR DROP CELLS 1+
[2016-08-08] MEDS: SODIUM CHLORIDE 0.9% 1000ML 1,000 ML IV SCH ×2 (08:47→17:01)
[2016-08-08] MEDS: ASPIRIN 81 MG ECTAB PO SCH (08:48)
[2016-08-08] MEDS: CLOPIDOGREL BISULFATE 75 MG TAB PO SCH (08:48)
--- NOTE | 2016-08-08 12:20 | ECHOCARDIOGRAM REPORT ---
*NOTICE TO RECEIVING [employer] This information is strictly Confidential and protected under [place] law. [place] law prohibits you from making any further disclosure of this information unless further disclosure is expressly permitted by the written consent of the person to whom it pertains or is authorized by law. A general authorization for the release of medical or other information is not sufficient for this purpose. Hospital accepts no responsibility if the information is made available to any other person, INCLUDING THE PATIENT. Interpretation Summary * Name: YANETH HENRIQUEZ Study Date: 08/08/2016 06:42 AM BP: 102/64 mmHg * Patient Location: C.2T\S\S237\S\1 HR: 67 * : 1945 (M/d/yyyy) Gender: Male Height: 68 in * Age: 71 yrs Ethnicity: CA Weight: 167 lb * Ordering Physician: Kleber Long * Referring Physician: Self, Referred * Performed By: Leida Bhat RDCS * * Reason For Study: Murmurs * BSA: 1.9 m2 * -- Conclusions -- * There is mild concentric left ventricular hypertrophy. * Left ventricular systolic function is normal. * Grade I diastolic dysfunction, (abnormal relaxation pattern). * The left atrium is severely dilated. * The leaflets are thickened and there is a flail segment of the posterior leaflet * At least moderate MR * Right ventricular systolic pressure is normal. Procedure Details * A complete two-dimensional transthoracic echocardiogram was performed (2D, M-mode, Doppler and color flow Doppler). Left Ventricle * The left ventricle is borderline dilated. * There is mild concentric left ventricular hypertrophy. * Ejection Fraction = 65-70%. * Left ventricular systolic function is normal. * Grade I diastolic dysfunction, (abnormal relaxation pattern). * The left ventricular wall motion is normal. Right Ventricle * The right ventricle is normal in size and function. Atria * The left atrium is severely dilated. * Right atrial size is normal. Mitral Valve * The leaflets are thickened and there is a flail segment of the posterior leaflet * At least moderate MR * The mitral regurgitant jet is anteriorly directed, which is consistent with posterior leaflet pathology. Tricuspid Valve * The tricuspid valve is not well visualized, but is grossly normal. * There is trace tricuspid regurgitation. * Right ventricular systolic pressure is normal. Aortic Valve * The aortic valve is normal in structure and function. * No hemodynamically significant valvular aortic stenosis. * Trace aortic regurgitation. Great Vessels * The aortic root is normal size. Pericardium/Pleural * There is no pericardial effusion. Great Vessels * Normal inferior vena cava size and collapsability with sniff indicates a normal right atrial pressure of 3 mmHg MMode 2D Measurements and Calculations IVSd 1.4 cm LVIDd 5.1 cm LVIDs 2.9 cm LVPWd 1.2 cm IVS/LVPW 1.1 FS 43.2 % EDV(Teich) 126.3 ml ESV(Teich) 32.8 ml EF(Teich) 74.0 % EDV(cubed) 136.1 ml ESV(cubed) 24.9 ml EF(cubed) 81.7 % LV mass(C)d 272.1 grams LV mass(C)dI 143.7 grams/m\S\2 SV(Teich) 93.5 ml SI(Teich) 49.4 ml/m\S\2 SV(cubed) 111.1 ml SI(cubed) 58.7 ml/m\S\2 Ao root diam 3.5 cm Ao root area 9.7 cm\S\2 ACS 2.0 cm LA dimension 5.2 cm asc Aorta Diam 3.6 cm LA/Ao 1.5 LVOT diam 2.0 cm LVOT area 3.0 cm\S\2 LVAd ap4 34.5 cm\S\2 LVLd ap4 8.7 cm EDV(MOD-sp4) 110.8 ml EDV(sp4-el) 116.1 ml LVAs ap4 17.6 cm\S\2 LVLs ap4 6.6 cm ESV(MOD-sp4) 38.8 ml ESV(sp4-el) 39.5 ml EF(MOD-sp4) 65.0 % EF(sp4-el) 66.0 % LVAd ap2 29.5 cm\S\2 LVLd ap2 8.1 cm EDV(MOD-sp2) 86.9 ml EDV(sp2-el) 90.7 ml LVAs ap2 14.8 cm\S\2 LVLs ap2 6.9 cm ESV(MOD-sp2) 27.1 ml ESV(sp2-el) 27.0 ml EF(MOD-sp2) 68.8 % EF(sp2-el) 70.3 % LVLd %diff -6.82 % EDV(MOD-bp) 102.9 ml LVLs %diff 3.6 % ESV(MOD-bp) 33.0 ml EF(MOD-bp) 67.9 % SV(MOD-sp4) 72.0 ml SI(MOD-sp4) 38.0 ml/m\S\2 SV(MOD-sp2) 59.8 ml SI(MOD-sp2) 31.6 ml/m\S\2 SV(MOD-bp) 69.9 ml SI(MOD-bp) 36.9 ml/m\S\2 SV(sp4-el) 76.6 ml SI(sp4-el) 40.5 ml/m\S\2 SV(sp2-el) 63.7 ml SI(sp2-el) 33.7 ml/m\S\2 Doppler Measurements and Calculations MV E max mikala 143.7 cm/sec MV A max mikala 104.7 cm/sec MV E/A 1.4 MV dec time 0.28 sec Ao V2 max 125.1 cm/sec Ao max PG 6.3 mmHg Ao max PG (full) 2.0 mmHg HAYDEN(V,A) 2.5 cm\S\2 HAYDEN(V,D) 2.5 cm\S\2 AI max mikala 385.5 cm/sec AI max PG 59.4 mmHg AI dec slope 259.0 cm/sec\S\2 AI P1/2t 436.0 msec LV V1 max PG 4.3 mmHg LV V1 max 103.1 cm/sec MR max mikala 446.6 cm/sec MR max PG 79.8 mmHg MR mean mikala 345.9 cm/sec MR mean PG 53.6 mmHg MR VTI 144.9 cm PA V2 max 65.2 cm/sec PA max PG 1.7 mmHg PA acc slope 271.0 cm/sec\S\2 PA acc time 0.16 sec PI max mikala 156.4 cm/sec PI max PG 9.8 mmHg PI dec slope 228.8 cm/sec\S\2 PI P1/2t 200.2 msec TR max mikala 246.0 cm/sec PA pr(Accel) 6.1 mmHg
--- NOTE | 2016-08-08 12:47 | Neurology Consultation ---
Neurology Consultation Date of Consultation: August 08, 2016. Attending Physician: Michael Maciel D.O. Primary Care Physician: Clarisa Hale PA-C Reason for Consultation: Consultation for visual changes and stroke History of Present Illness Source: patient, hospital records This is a 71-year-old left-handed male who presents with acute visual changes. He reports having sudden diplopia at 7:30 AM yesterday morning. He reports some slow improvement this morning. Patient denies any changes with his speech or swallowing. Denies any changes with his gait or walking. Denies any new weakness or numbness. Denies any other neurological symptoms in association. Patient does report that he takes baby aspirin daily and has been compliant with blood pressure medications. MRI of the brain report and images reviewed by myself. The patient did have several small tiny diffuse acute ischemic strokes in the bilateral cerebellar and cerebral areas. Likely embolic since no hypoperfusion episodes occurred. MRA of the head and neck along with CTA of the head and neck was unremarkable with the exception of some mild atherosclerosis Total cholesterol 116, LDL 69, HDL 32, triglycerides 77. 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 Normally independent in his activities of daily living. No tobacco or alcohol use. No illegal drug use. Smoking Status: Never smoker Alcohol Use: none Drug Use: none Marital Status: single Housing Status: lives alone Occupation Status: retired, other Allergies Coded Allergies: Bee Venom (Verified Allergy, Severe, SWELLING AT SITE, 08/07/16) Lysine (Verified Allergy, Mild, RASH, 01/10/16) Current Inpatient Medications Current Inpatient Medications Medications (Trade) Dose Ordered Sig/Apollo Route Start Time Stop Time Status Last Admin Dose Admin Miscellaneous Information 1 ea 1 ea UD PRN N/A 08/07/16 18:30 09/06/16 18:29 Sodium Chloride (Nss 1000ml) 1,000 ml @ 100 mls/hr Q10H IV 5/18/17 18:25 09/06/16 18:24 08/08/16 08:47 100 MLS/HR Al Hydrox/Mg Hydrox/Simethicone (Maalox Max Susp) 15 ml Q4H PRN PO 08/07/16 18:30 09/06/16 18:29 Magnesium Hydroxide (Milk Of Magnesia Susp) 30 ml Q12H PRN PO 08/07/16 18:30 09/06/16 18:29 Ondansetron HCl (Zofran Inj) 4 mg Q6H PRN IV 08/07/16 18:30 09/06/16 18:29 Polyethylene (Miralax Powder Packet) 17 gm DAILY PRN PO 08/07/16 18:30 09/06/16 18:29 Aspirin (Ecotrin Tab) 81 mg DAILY PO 08/08/16 09:00 09/07/16 08:59 08/08/16 08:48 81 MG Carvedilol (Coreg Tab) 6.25 mg BID PO 08/07/16 21:00 09/06/16 20:59 Future Hold 08/07/16 22:22 6.25 MG Simvastatin (Zocor Tab) 20 mg QPM PO 08/07/16 21:00 09/06/16 20:59 08/07/16 22:22 20 MG Lisinopril (Zestril Tab) 20 mg BID PO 08/07/16 21:00 09/06/16 20:59 Future Hold 08/07/16 22:22 20 MG Clopidogrel Bisulfate (plAVix TAB) 75 mg QAM PO 08/08/16 09:00 09/07/16 08:59 08/08/16 08:48 75 MG Heparin Sodium (Porcine) (Heparin Sq 5000 Unit/0.5ml) 5,000 unit Q8 SQ 08/07/16 22:00 09/06/16 21:59 08/08/16 05:50 5,000 UNIT Review of Systems Complete Review of systems is otherwise negative except for the above noted in history of present illness. No chest pain, heart palpitations, or shortness of breath. Physical Exam Vital Signs (Past 24 Hrs): Date Time Temp Pulse Resp B/P Pulse Ox O2 Delivery O2 Flow Rate FiO2 08/08/16 11:44 36.8 70 20 133/77 98 08/08/16 10:23 80 99 08/08/16 08:42 36.7 81 20 131/74 98 Room Air 08/08/16 07:30 Room Air 08/08/16 04:08 36.5 67 19 102/64 96 Room Air 08/08/16 04:00 Room Air 08/08/16 00:00 Room Air 08/07/16 23:27 36.7 62 18 125/67 98 Room Air 08/07/16 21:58 36.4 78 17 134/81 95 Room Air 08/07/16 19:58 78 16 137/96 98 Room Air 08/07/16 18:06 70 18 143/81 99 Room Air 08/07/16 17:43 36.8 72 16 124/73 99 Room Air 08/07/16 16:18 72 16 124/73 98 Room Air 08/07/16 16:02 70 08/07/16 15:35 69 16 128/69 97 Room Air 08/07/16 15:35 97 Room Air 08/07/16 14:39 36.8 82 20 120/78 96 Room Air Gen.: Patient is alert and sitting in bed, in no acute distress. HEENT: Normocephalic /atraumatic, no scleral icterus Heart: Regular rate and rhythm Extremities: No gross deformities or rashes noted Neurological examination: Mental status: Patient is alert and oriented x3. Attention and concentration normal for the situation. Good fund of knowledge. Able to give her own history. Speech mild to moderate dysarthria and no aphasia noted Cranial nerve: Visual schmidt intact to counting. Funduscopic examination was unremarkable. No papilledema. Pupils equally round and reactive to light. Left third nerve palsy. Possibly some mild flattening of the right nasal labial folds. Facial sensation intact. Tongue is midline. Good palatal elevation. Good shoulder shrug bilaterally. Hearing grossly intact to voice. Strength: 5/5 both proximal and distally in all extremities. There is no arm drift. Tone is normal. Sensation: Grossly intact to light touch in all extremities. Deep tendon reflexes: +2 in bilateral biceps, brachioradialis and patellar. Toes were equivocal to plantar stimulation Coordination: Patient had good finger to nose without dysmetria Station within the bed was normal (gait reported as wide-based by nursing and PT ) Laboratory Results Past 24 Hours: 08/08/16 07:44 Red Blood Count 4.31, Mean Corpuscular Volume 90.7, Mean Corpuscular Hemoglobin 31.8, Mean Corpuscular Hemoglobin Concent 35.0, Neutrophils (%) (Auto) 58.6, Lymphocytes (%) (Auto) 20.8, Monocytes (%) (Auto) 13.7, Eosinophils (%) (Auto) 3.6, Basophils (%) (Auto) 2.5, Neutrophils # (Auto) 2.31, Lymphocytes # (Auto) 0.82, Monocytes # (Auto) 0.54, Eosinophils # (Auto) 0.14, Basophils # (Auto) 0.10 08/08/16 06:09 08/08/16 08:11 Test 08/07/16 15:17 08/07/16 20:00 08/07/16 22:03 08/08/16 06:09 RDW Standard Deviation 44.6 fL (36.4-46.3) RDW Coefficient of Variation 13.5 % (11.5-14.5) White Blood Count 4.85 K/uL (4.8-10.8) Red Blood Count 4.51 M/uL (4.7-6.1) Hemoglobin 13.8 g/dL (14.0-18.0) Hematocrit 40.4 % (42-52) Mean Corpuscular Volume 89.6 fL (80-100) Mean Corpuscular Hemoglobin 30.6 pg (25-34) Mean Corpuscular Hemoglobin Concent 34.2 g/dl (32-36) Platelet Count 161 K/uL (130-400) Mean Platelet Volume 9.7 fL (7.4-10.4) Neutrophils (%) (Auto) 61.1 % Lymphocytes (%) (Auto) 24.1 % Monocytes (%) (Auto) 10.3 % Eosinophils (%) (Auto) 2.9 % Basophils (%) (Auto) 0.4 % Neutrophils # (Auto) 2.96 K/uL (1.4-6.5) Lymphocytes # (Auto) 1.17 K/uL (1.2-3.4) Monocytes # (Auto) 0.50 K/uL (0.11-0.59) Eosinophils # (Auto) 0.14 K/uL (0-0.5) Basophils # (Auto) 0.02 K/uL (0-0.2) Red Blood Cell Morphology Unremarkable Estimated Average Glucose 120 mg/dl Hemoglobin A1c 5.8 % (4.5-5.6) Total Bilirubin 0.7 mg/dl (0.2-1) Direct Bilirubin 0.2 mg/dl (0-0.2) Aspartate Amino Transf (AST/SGOT) 22 U/L (15-37) Alanine Aminotransferase (ALT/SGPT) 28 U/L (12-78) Alkaline Phosphatase 78 U/L (45-117) Total Creatine Kinase 86 U/L (39-308) Creatine Kinase MB 2.4 ng/ml (0.5-3.6) Creatine Kinase MB Ratio 2.8 (0-3.0) Total Protein 7.9 gm/dl (6.4-8.2) Albumin 3.4 gm/dl (3.4-5.0) Lyme Disease IgG Antibody NEG (NEG) Lyme Disease IgM Antibody NEG (NEG) Hepatitis C Antibody Screen NEG (NEG) Urine Color YELLOW Urine Appearance CLEAR (CLEAR) Urine pH 5.0 (4.5-7.5) Urine Specific [place] > 1.045 (1.000-1.030) Urine Protein NEG (NEG) Urine Glucose (UA) NEG (NEG) Urine Ketones NEG (NEG) Urine Occult Blood 1+ (NEG) Urine Nitrite NEG (NEG) Urine Bilirubin NEG (NEG) Urine Urobilinogen NEG (NEG) Urine Leukocyte Esterase NEG (NEG) Urine WBC (Auto) 1-5 /hpf (0-5) Urine RBC (Auto) 5-10 /hpf (0-4) Urine Hyaline Casts (Auto) 1-5 /lpf (0-5) Urine Epithelial Cells (Auto) 20-30 /lpf (0-5) Urine Bacteria (Auto) NEG (NEG) Prothrombin Time 11.4 SECONDS (9.0-12.0) Prothromb Time International Ratio 1.1 (0.9-1.1) Activated Partial Thromboplast Time 32.1 SECONDS (21.0-31.0) Partial Thromboplastin Ratio 1.2 Anion Gap 6.0 mmol/L (3-11) Est Creatinine Clear Calc Drug Dose 56.2 ml/min Estimated GFR () 71.1 Estimated GFR (Non- 61.3 BUN/Creatinine Ratio 21.9 (10-20) Calcium Level 8.7 mg/dl (8.5-10.1) Troponin I 0.579 ng/ml (0-0.045) Triglycerides Level 77 mg/dl (0-150) Cholesterol Level 116 mg/dl (0-200) HDL Cholesterol 32 mg/dl LDL Cholesterol, Calculated 69 mg/dl VLDL Cholesterol, Calculated 15 mg/dl Cholesterol/HDL Ratio 3.6 Test 08/08/16 07:44 White Blood Count 3.94 K/uL (4.8-10.8) Red Blood Count 4.31 M/uL (4.7-6.1) Hemoglobin 13.7 g/dL (14.0-18.0) Hematocrit 39.1 % (42-52) Mean Corpuscular Volume 90.7 fL (80-100) Mean Corpuscular Hemoglobin 31.8 pg (25-34) Mean Corpuscular Hemoglobin Concent 35.0 g/dl (32-36) Platelet Count 145 K/uL (130-400) Neutrophils (%) (Auto) 58.6 % Lymphocytes (%) (Auto) 20.8 % Monocytes (%) (Auto) 13.7 % Eosinophils (%) (Auto) 3.6 % Basophils (%) (Auto) 2.5 % Neutrophils # (Auto) 2.31 K/uL (1.4-6.5) Lymphocytes # (Auto) 0.82 K/uL (1.2-3.4) Monocytes # (Auto) 0.54 K/uL (0.11-0.59) Eosinophils # (Auto) 0.14 K/uL (0-0.5) Basophils # (Auto) 0.10 K/uL (0-0.2) Immature Granulocyte % (Auto) 0.8 % Immature Granulocyte # (Auto) 0.03 K/uL (0.00-0.02) Nucleated RBC Absolute Count (auto) 0.07 K/uL (0-0) Nucleated Red Blood Cells % 1.7 % Large Platelets 1+ Tear Drop Cells 1+ Ovalocytes 1+ Imaging As noted above in history of present illness Impression This is a 71-year-old left-handed male who presents with acute left third palsy with evidence of tiny diffuse cerebral and cerebellar ischemic strokes. Etiology appears likely embolic (either cardioembolic versus large vessel). Cannot rule out small vessel etiology, but there was no events consistent with hypoperfusion. No evidence at this time of vasculitis. Patient does have a family history of factor V Leiden. Residual neurologic deficits include left third nerve palsy and possible minimal right lower facial droop. Known stroke risk factors include hypertension. Plan Add Plavix to aspirin 81 mg daily. In 1-3 months can discontinue aspirin. Follow-up echocardiogram for cardioembolic sources for stroke. Pending factor V Leiden, anticardiolipin antibodies, beta 2 glycoprotein, and lupus anticoagulant. In addition I have added on homocystine. We will likely these labs will take several weeks to return. Follow-up PT/OT and speech therapies for discharge planning. Permissive hypertension in the hospital. Blood pressure recommendations while in hospital 175/95-150/80 Avoid hypotension and dehydration Stroke risk factor modifications and recommendations: Blood pressure recommendations for the first month post hospital discharge 150/ 90-130/80, and after that blood pressure recommendations 130/80-110/70 Total cholesterol goal 100- 200 and LDL goal less than 100 Hemoglobin A1c goal less than 7 Encourage cardiovascular exercise at least 3 times a week for 30 minutes. Follow-up in neurology clinic in 1 month for post stroke hospital follow-up. If no definitive etiology for stroke is found, would consider outpatient Holter monitor to rule out A. fib. Patient may continue to use eye patch as needed for diplopia. Thank you for allowing me to participate in this patient's care. If there is any questions or concerns, feel free to call/page me.
--- NOTE | 2016-08-08 18:05 | CARDIOLOGY CONSULTATION ---
DATE OF CONSULTATION: 08/08/2016 REFERRING PHYSICIAN: Dr. Nader Jimenez. CHIEF COMPLAINT: Elevated troponin. HISTORY OF PRESENT ILLNESS: Mr. Luis Carey is a 71-year-old gentleman with a history of valvular heart disease who realized yesterday morning that he had double vision. The patient states that he woke in his normal state of health and had had a conversation on the telephone. When he finished this conversation, he developed acute onset of double vision. The visual distribution prompted him to see an medical research scientist at which point he was referred to [facility] over concerns of a cerebrovascular accident. The patient states that he did not have any associated symptoms. He did not have any dizziness or lightheadedness. He denied any difficulty with using arms, legs or other motor functions. He denied any paresthesias in his limbs or his body in general. He was not noted to have any change in his usual speaking impediment. He specifically denied other symptoms such as difficulty breathing, diaphoresis, nausea or chest discomfort. He did not report any history or sensation of palpitations or rapid heartbeats. He claims to have never suffered a syncopal episode. In general, the patient is a very active individual who is accustomed to caring for his property and chopping wood, amongst other strenuous activities. He denies any associated symptoms which limits these activities such as chest pain or breathing difficulties. He claims to have a history of valvular heart disease, which was discovered as a child. He previously was followed by a wood setter and claims he has gotten frequent follow up; however, he could not recall the location of his wood setter's office. PAST MEDICAL HISTORY: Significant for: 1. 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 2. Valvular heart disease, possibly mitral regurgitation. 3. Remote history of meningitis with resultant neurologic deficits including speech impediment and learning disability. 4. Hypertension. PAST SURGICAL HISTORY: Includes a skin graft on the left leg secondary to traumatic accident. OUTPATIENT MEDICATIONS: Include a daily aspirin, carvedilol, simvastatin and lisinopril and the topical application for his cutaneous lupus. MEDICAL ALLERGIES: LYSINE. SOCIAL HISTORY: The patient is a retired vehicle painter. He is currently a nonsmoker and denies significant alcohol use. FAMILY HISTORY: Not significant for premature coronary disease. REVIEW OF SYSTEMS: A complete 10-system review of systems was performed and the pertinent positives are noted in the history of present illness. The remainder being negative. He denied any recent weight change. He denied any changes in eating habits. He has no nausea, vomiting or change in his bowel habits. He has not noticed any swelling in his lower extremities. He generally does not experience pain. PHYSICAL EXAMINATION: GENERAL: The patient does not appear to be in acute distress. He is a pleasant individual who is alert and oriented. His mood and affect appeared normal. He answered all questions appropriately. CURRENT VITAL SIGNS: Include blood pressure 102/64 with a pulse of 67. EYES: The left eye was patched. The right eye did not have any scleral icterus. Extraocular movements appeared to be intact. NECK: Palpation of the submandibular region did not reveal any significant lymphadenopathy and the carotids are palpable bilaterally. There were no bruits on auscultation. There is no evidence of jugular venous distention and thyroid is not enlarged. LUNGS: Auscultation of his lungs revealed them to be clear. There were no rales, wheezes or rhonchi. He had good respiratory effort without use of accessory muscles. CARDIAC: Revealed him to be in a regular rhythm with normal S1, normal S2. He had a fairly loud holosystolic murmur which was heard best at the apex. ABDOMEN: Soft and nontender. EXTREMITIES: Evaluation of both wrists revealed the radial pulses that were equal in intensity. There was no evidence of cyanosis or clubbing. Evaluation of his lower extremities did not reveal any significant peripheral edema. He did have a rash on examination today with some discolored patches of skin spread diffusely. LABORATORY STUDIES: Obtained since admission included a white cell count of 3.9, hemoglobin of 13.7, platelet count of 145. Sodium was 140, potassium was 3.7, BUN was 26, creatinine was 1.2. Serial cardiac biomarkers included initial value of 0.64 and a second value of 0.59, total CK was normal. The patient had a 12-lead EKG obtained at the time of admission which revealed him to be in a normal sinus rhythm. It was essentially a normal EKG without acute ST or T-wave changes. Several imaging studies were obtained at the time of admission including, a head CTA which suggested a possible subacute infarct involving the left occipital lobe. A brain MRI was also performed, which was consistent with a simple small vessel disease. A single view chest x-ray did not reveal any acute cardiopulmonary findings. A CT angiogram of the neck did not reveal any significant carotid artery disease or vertebral artery disease. MRA of the neck was also performed which did not reveal any evidence of carotid artery disease. Carotid ultrasound was also performed which did not reveal any evidence of significant carotid artery disease. There was also antegrade flow in the vertebral vessel. ASSESSMENT AND PLAN: 1. Elevated troponin: The patient's presentation involved double vision of the left eye. I am not aware of any particular studies involving elevated cardiac troponin in the setting of diplopia. As such interpretation of the troponin is difficult in this setting. The patient did not describe symptoms of an acute coronary syndrome or angina. There is a possibility that he had a cerebrovascular event, although this does not appear to be substantiated on his brain MRI. An echocardiogram has been ordered and will be reviewed and given the absence of any notable dysfunction of the left ventricle, no additional cardiac evaluation will be warranted regarding this elevated troponin. 2. Valvular heart disease. The patient does have holosystolic murmur on exam consistent with mitral valve disease. This has been reported in the past. We do not have records regarding his followup, but an echocardiogram will be obtained today and we can review the severity and nature of his valvular heart disease. 3. Possible embolic stroke. If the etiology of the patient's diplopia is felt to be related to an embolic phenomenon, the option for extended cardiac monitoring exists. This would aid in identifying arrhythmias which would predispose towards embolic events specifically atrial fibrillation. Monitoring could be accomplished with a 30-day monitor or even implantable loop recorder depending on the patient's desires and the insurance coverage.
[2016-08-08] MEDS: ATORVASTATIN 40 MG TAB PO SCH (19:43)
--- NOTE | 2016-08-08 22:34 | CARDIOLOGY PROGRESS NOTE ---
DATE: 08/08/2016 SUBJECTIVE: The patient underwent echocardiography earlier today in order to evaluate the history of known mitral valve dysfunction. He was noted to have at least moderate mitral regurgitation associated with a flail segment of the mitral valve. The patient did have significant left atrial dilation as a result, while this does not likely contribute to his acute problem. The patient should be closely followed in an outpatient setting and advised to consider a LORETTA for additional evaluation; both of the mitral valve structure as well as the severity of his mitral regurgitation in regards to mitral valve repair. Additionally, given the left atrial dilation the patient is at significant risk for development of atrial fibrillation which could be an etiology for embolic phenomena such as a cerebrovascular accident. If indeed this is being entertained as a possibility for the patient's diplopia and a period of prolonged monitoring either with ambulatory event monitoring or implantable loop recorder should be considered. CODI
[2016-08-09] MEDS: SODIUM CHLORIDE 0.9% 1000ML 1,000 ML IV SCH (00:25)
[2016-08-09 03:39] VITALS: BP 115/64; PULSE 67; TEMP 36.6; O2SAT 96
[2016-08-09] MEDS: HEPARIN SOD 5000 UNIT/0.5 ML CARP SQ SCH ×3 (06:00→22:00)
[2016-08-09 06:54] LABS: BASO % 0.5 %; BASO ABS # 0.02 K/uL (0-0.2); COMPLETE YES; HEMATOCRIT 36.2 % (42-52); IG% 0.5 %; LYMPH % 30.2 %; MEAN CELL VOLUME 91.2 fL (80-100); MEAN CORPUSCULAR HEMOGLOBIN 31.2 pg (25-34); MEAN CORPUSCULAR HGB CONC 34.3 g/dl (32-36); MEAN PLATELET VOLUME 9.4 fL (7.4-10.4); MONO % 9.3 %; NEUT % 56.5 %; PLATELET COUNT 119 K/uL (130-400); RED BLOOD COUNT 3.97 M/uL (4.7-6.1); WHITE BLOOD COUNT 3.64 K/uL (4.8-10.8)
[2016-08-09 07:28] LABS: BUN/CREATININE RATIO 17.9 (10-20); CALCIUM 7.8 mg/dl (8.5-10.1); CREATININE 1.1 mg/dl (0.60-1.40); POTASSIUM 4.2 mmol/L (3.5-5.1)
[2016-08-09 07:35] VITALS: BP 126/73; PULSE 69; TEMP 36.6; O2SAT 98
[2016-08-09] MEDS: ASPIRIN 81 MG ECTAB PO SCH (08:09)
[2016-08-09] MEDS: CLOPIDOGREL BISULFATE 75 MG TAB PO SCH (08:09)
[2016-08-09 10:33] VITALS: BP 143/73; PULSE 69; TEMP 36.7; O2SAT 98
--- NOTE | 2016-08-09 13:53 | Neurology Progress Notes ---
Neurology Progress Note Date of Service August 09, 2016. Subjective Patient reports that his vision has improved and is no longer seeing double this morning. He reports that he feels 100% back to normal. No new neurological symptoms. Echocardiogram results and cardiology note reviewed Objective Date Time Temp Pulse Resp B/P Pulse Ox O2 Delivery O2 Flow Rate FiO2 08/09/16 11:46 Room Air 08/09/16 10:33 36.7 69 18 143/73 98 Room Air 08/09/16 08:00 Room Air 08/09/16 07:35 36.6 69 18 126/73 98 Room Air 08/09/16 04:00 Room Air 08/09/16 03:39 36.6 67 18 115/64 96 Room Air 08/09/16 00:00 Room Air 08/08/16 23:43 36.8 69 20 118/72 98 Room Air 08/08/16 20:00 Room Air 08/08/16 19:23 37.1 69 18 124/70 95 Room Air 08/08/16 16:00 Room Air 08/08/16 15:30 36.4 67 17 131/63 98 Room Air Last 24 Hours Test 08/09/16 06:33 White Blood Count 3.64 K/uL Red Blood Count 3.97 M/uL Hemoglobin 12.4 g/dL Hematocrit 36.2 % Mean Corpuscular Volume 91.2 fL Mean Corpuscular Hemoglobin 31.2 pg Mean Corpuscular Hemoglobin Concent 34.3 g/dl Platelet Count 119 K/uL Mean Platelet Volume 9.4 fL Neutrophils (%) (Auto) 56.5 % Lymphocytes (%) (Auto) 30.2 % Monocytes (%) (Auto) 9.3 % Eosinophils (%) (Auto) 3.0 % Basophils (%) (Auto) 0.5 % Neutrophils # (Auto) 2.05 K/uL Lymphocytes # (Auto) 1.10 K/uL Monocytes # (Auto) 0.34 K/uL Eosinophils # (Auto) 0.11 K/uL Basophils # (Auto) 0.02 K/uL RDW Standard Deviation 45.2 fL RDW Coefficient of Variation 13.5 % Immature Granulocyte % (Auto) 0.5 % Immature Granulocyte # (Auto) 0.02 K/uL Sodium Level 147 mmol/L Potassium Level 4.2 mmol/L Chloride Level 115 mmol/L Carbon Dioxide Level 25 mmol/L Anion Gap 7.0 mmol/L Blood Urea Nitrogen 20 mg/dl Creatinine 1.10 mg/dl Est Creatinine Clear Calc Drug Dose 61.3 ml/min Estimated GFR () 79.0 Estimated GFR (Non- 68.1 BUN/Creatinine Ratio 17.9 Random Glucose 79 mg/dl Calcium Level 7.8 mg/dl Exam: Gen.: Patient is alert and sitting in bed, in no acute distress. HEENT: Normocephalic /atraumatic, no scleral icterus Heart: Regular rate and rhythm Extremities: No gross deformities or rashes noted Neurological examination: Mental status: Patient is alert and oriented x3. Attention and concentration normal for the situation. Good fund of knowledge. Able to give her own history. Speech mild to moderate dysarthria and no aphasia noted Cranial nerve: Visual schmidt intact to counting. Funduscopic examination was unremarkable. No papilledema. Pupils equally round and reactive to light. Improved partial left third nerve palsy. Possibly some mild flattening of the right nasal labial folds. Facial sensation intact. Tongue is midline. Good palatal elevation. Good shoulder shrug bilaterally. Hearing grossly intact to voice. Strength: 5/5 both proximal and distally in all extremities. There was a mild right arm drift Sensation: Grossly intact to light touch in all extremities. Coordination: Patient had good finger to nose without dysmetria Gait was wide based but appeared to be stable. No ataxia noted. Current Inpatient Medications Medications (Trade) Dose Ordered Sig/Apollo Route Start Time Stop Time Status Last Admin Dose Admin Miscellaneous Information (Pharmacist Discharge Med Rec Consult) 1 ea UD PRN N/A 08/07/16 18:30 09/06/16 18:29 Al Hydrox/Mg Hydrox/Simethicone (Maalox Max Susp) 15 ml Q4H PRN PO 08/07/16 18:30 09/06/16 18:29 Magnesium Hydroxide (Milk Of Magnesia Susp) 30 ml Q12H PRN PO 08/07/16 18:30 09/06/16 18:29 Ondansetron HCl (Zofran Inj) 4 mg Q6H PRN IV 08/07/16 18:30 09/06/16 18:29 Polyethylene (Miralax Powder Packet) 17 gm DAILY PRN PO 08/07/16 18:30 09/06/16 18:29 Aspirin (Ecotrin Tab) 81 mg DAILY PO 08/08/16 09:00 09/07/16 08:59 08/09/16 08:09 81 MG Carvedilol (Coreg Tab) 6.25 mg BID PO 08/07/16 21:00 09/06/16 20:59 Future Hold 08/07/16 22:22 6.25 MG Lisinopril (Zestril Tab) 20 mg BID PO 08/07/16 21:00 09/06/16 20:59 Future Hold 08/07/16 22:22 20 MG Clopidogrel Bisulfate (plAVix TAB) 75 mg QAM PO 08/08/16 09:00 09/07/16 08:59 08/09/16 08:09 75 MG Heparin Sodium (Porcine) (Heparin Sq 5000 Unit/0.5ml) 5,000 unit Q8 SQ 08/07/16 22:00 09/06/16 21:59 08/09/16 06:00 5,000 UNIT Atorvastatin Calcium (Lipitor Tab) 40 mg QPM PO 08/08/16 21:00 09/07/16 20:59 08/08/16 19:43 40 MG Impression This is a 71-year-old left-handed male who presents with acute left third palsy with evidence of tiny diffuse cerebral and cerebellar ischemic strokes. Etiology appears likely embolic (either cardioembolic versus large vessel). Cannot rule out small vessel etiology, but there was no events consistent with hypoperfusion. Patient does have a family history of factor V Leiden. Residual neurologic deficits include minimal left third nerve palsy, minimal right lower facial droop and right arm pronator drift. Known stroke risk factors include hypertension. Plan Recommend LORETTA as an inpatient or outpatient per cardiology discretion for further evaluation of stroke etiology Continue Plavix and aspirin 81 mg daily. In 1-3 months can discontinue aspirin. (Unless cardiology has a cardiac reason to continue dual antiplatelets) Pending factor V Leiden, anticardiolipin antibodies, beta 2 glycoprotein, lupus anticoagulant, and homocystine. These labs will be followed up as an outpatient in clinic Follow-up PT/OT and speech therapies for discharge planning. Permissive hypertension in the hospital. Blood pressure recommendations while in hospital 175/95-150/80 Avoid hypotension and dehydration Stroke risk factor modifications and recommendations: Blood pressure recommendations for the first month post hospital discharge 150/ 90-130/80, and after that blood pressure recommendations 130/80-110/70 Total cholesterol goal 100- 200 and LDL goal less than 100 Hemoglobin A1c goal less than 7 Encourage cardiovascular exercise at least 3 times a week for 30 minutes. Follow-up in neurology clinic in 1 month for post stroke hospital follow-up. If no definitive etiology for stroke is found, would consider outpatient Holter monitor to rule out A. fib. Thank you for allowing me to participate in this patient's care. If there is any questions or concerns, feel free to call/page me.
--- NOTE | 2016-08-09 15:47 | Progress Note ---
Subjective Date of Service: August 09, 2016. Subjective Pt evaluation today including: conversation w/ patient, physical exam, lab review, conversation w/ hematology oncology consultant, review of inpatient medication list Pain: no pain PO Intake: adequate Voiding: no voiding problems patient feeling better, no eye patch, no further diplopia discussed that therapy recommending rehab, he agrees saw recommendations from cardiology for LORETTA, could try to get done on Thursday since he will be here discussed with neurology, agree with LORETTA, can follow up in neuro clinic 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 (2) Diplopia Status: Acute (3) Elevated troponin Status: Acute (4) Occipital stroke Status: Acute Review of Systems All Other Systems: Reviewed and Negative Medications Current Inpatient Medications Medications (Trade) Dose Ordered Sig/Apollo Route Start Time Stop Time Status Last Admin Dose Admin Miscellaneous Information (Pharmacist Discharge Med Rec Consult) 1 ea UD PRN N/A 08/07/16 18:30 09/06/16 18:29 Al Hydrox/Mg Hydrox/Simethicone (Maalox Max Susp) 15 ml Q4H PRN PO 08/07/16 18:30 09/06/16 18:29 Magnesium Hydroxide (Milk Of Magnesia Susp) 30 ml Q12H PRN PO 08/07/16 18:30 09/06/16 18:29 Ondansetron HCl (Zofran Inj) 4 mg Q6H PRN IV 08/07/16 18:30 09/06/16 18:29 Polyethylene (Miralax Powder Packet) 17 gm DAILY PRN PO 08/07/16 18:30 09/06/16 18:29 Aspirin (Ecotrin Tab) 81 mg DAILY PO 08/08/16 09:00 09/07/16 08:59 08/09/16 08:09 81 MG Carvedilol (Coreg Tab) 6.25 mg BID PO 08/07/16 21:00 09/06/16 20:59 Future Hold 08/07/16 22:22 6.25 MG Lisinopril (Zestril Tab) 20 mg BID PO 08/07/16 21:00 09/06/16 20:59 Future Hold 08/07/16 22:22 20 MG Clopidogrel Bisulfate (plAVix TAB) 75 mg QAM PO 08/08/16 09:00 6/18/17 08:59 08/09/16 08:09 75 MG Heparin Sodium (Porcine) (Heparin Sq 5000 Unit/0.5ml) 5,000 unit Q8 SQ 08/07/16 22:00 09/06/16 21:59 08/09/16 14:53 5,000 UNIT Atorvastatin Calcium (Lipitor Tab) 40 mg QPM PO 08/08/16 21:00 09/07/16 20:59 08/08/16 19:43 40 MG Objective Vital Signs Date Time Temp Pulse Resp B/P Pulse Ox O2 Delivery O2 Flow Rate FiO2 08/09/16 15:14 Room Air 08/09/16 11:46 Room Air 08/09/16 10:33 36.7 69 18 143/73 98 Room Air 08/09/16 08:00 Room Air 08/09/16 07:35 36.6 69 18 126/73 98 Room Air 08/09/16 04:00 Room Air 08/09/16 03:39 36.6 67 18 115/64 96 Room Air 08/09/16 00:00 Room Air 08/08/16 23:43 36.8 69 20 118/72 98 Room Air 08/08/16 20:00 Room Air 08/08/16 19:23 37.1 69 18 124/70 95 Room Air 08/08/16 16:00 Room Air Physical Exam General Appearance: WD/WN, no apparent distress Neck: supple, no adenopathy, no JVD, trachea midline Respiratory/Chest: chest non-tender, lungs clear, normal breath sounds, no respiratory distress, no accessory muscle use Cardiovascular: regular rate, rhythm, no edema, no gallop, no JVD, no murmur Abdomen: normal bowel sounds, non tender, soft, no organomegaly Extremities: normal range of motion, non-tender, normal inspection, no pedal edema, no calf tenderness, pelvis stable Neurologic/Psychiatric: solution sales senior executive II-XII nml as tested (left eye EOM intact, visual acuity intact, no further diplopia), no motor/sensory deficits, alert, normal mood/affect, oriented x 3, + abnormal gait Skin: normal color, warm/dry, no rash Lymphatic: no adenopathy Laboratory Results Last 24 Hours Test 08/09/16 06:33 White Blood Count 3.64 K/uL Red Blood Count 3.97 M/uL Hemoglobin 12.4 g/dL Hematocrit 36.2 % Mean Corpuscular Volume 91.2 fL Mean Corpuscular Hemoglobin 31.2 pg Mean Corpuscular Hemoglobin Concent 34.3 g/dl Platelet Count 119 K/uL Mean Platelet Volume 9.4 fL Neutrophils (%) (Auto) 56.5 % Lymphocytes (%) (Auto) 30.2 % Monocytes (%) (Auto) 9.3 % Eosinophils (%) (Auto) 3.0 % Basophils (%) (Auto) 0.5 % Neutrophils # (Auto) 2.05 K/uL Lymphocytes # (Auto) 1.10 K/uL Monocytes # (Auto) 0.34 K/uL Eosinophils # (Auto) 0.11 K/uL Basophils # (Auto) 0.02 K/uL RDW Standard Deviation 45.2 fL RDW Coefficient of Variation 13.5 % Immature Granulocyte % (Auto) 0.5 % Immature Granulocyte # (Auto) 0.02 K/uL Sodium Level 147 mmol/L Potassium Level 4.2 mmol/L Chloride Level 115 mmol/L Carbon Dioxide Level 25 mmol/L Anion Gap 7.0 mmol/L Blood Urea Nitrogen 20 mg/dl Creatinine 1.10 mg/dl Est Creatinine Clear Calc Drug Dose 61.3 ml/min Estimated GFR () 79.0 Estimated GFR (Non- 68.1 BUN/Creatinine Ratio 17.9 Random Glucose 79 mg/dl Calcium Level 7.8 mg/dl Assessment and Plan 71 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 Occipital embolic stroke continue Aspirin, Plavix, Lipitor Echo - LA enlarged, one leaf of mitral valve dysfunctional causing regurgitation would try to get LORETTA on Thursday, will need to discuss with cardiology appreciate neurology note A1c at goal hypercoagulable work up sent, pending would need Holter monitor or loop recorder as outpatient, no afib thus far on the monitor plan for rehab Elevated troponin discussed with cardiology, no chest pain, no EKG changes, no further work up recommended Mitral Valve Enlargement regurgitation seen on echocardiogram, LA enlarged should get LORETTA prior to discharge for work up of stroke Cutaneous Lupus - Stable DVT ppx: teds, scds, ASA and plavix on board CODE STATUS: FULL CODE Disposition: From home, lives alone, CM to assist with discharge needs, plan for rehab
[2016-08-09 15:48] VITALS: BP 129/71; PULSE 76; TEMP 36.5; O2SAT 96
[2016-08-09 19:38] VITALS: BP 121/71; PULSE 71; TEMP 37; O2SAT 98
[2016-08-09] MEDS: ATORVASTATIN 40 MG TAB PO SCH (20:11)
[2016-08-10 00:09] VITALS: BP 118/63; PULSE 69; TEMP 36.7; O2SAT 95
[2016-08-10 03:45] VITALS: BP 105/61; PULSE 85; TEMP 36.9; O2SAT 96
[2016-08-10] MEDS: HEPARIN SOD 5000 UNIT/0.5 ML CARP SQ SCH (06:00)
[2016-08-10 07:30] LABS: HEMATOCRIT 38.9 % (42-52); MEAN CORPUSCULAR HEMOGLOBIN 30.2 pg (25-34); MEAN CORPUSCULAR HGB CONC 33.9 g/dl (32-36); MEAN PLATELET VOLUME 9.7 fL (7.4-10.4); PLATELET COUNT 129 K/uL (130-400); RED BLOOD COUNT 4.37 M/uL (4.7-6.1); WHITE BLOOD COUNT 4.09 K/uL (4.8-10.8)
[2016-08-10 07:33] VITALS: BP 114/75; PULSE 73; TEMP 36.4; O2SAT 97
[2016-08-10 07:56] LABS: BUN/CREATININE RATIO 15.3 (10-20); CALCIUM 8.1 mg/dl (8.5-10.1); CREATININE 1.1 mg/dl (0.60-1.40); POTASSIUM 3.9 mmol/L (3.5-5.1)
[2016-08-10] MEDS: CLOPIDOGREL BISULFATE 75 MG TAB PO SCH (08:04)
[2016-08-10] MEDS: ASPIRIN 81 MG ECTAB PO SCH (08:04)
[2016-08-10 08:08] LABS: BASO % 0.5 %; BASO ABS # 0.02 K/uL (0-0.2); COMPLETE YES; EOS % 3.2 %; IG% 0.7 %; LYMPH % 24.9 %; LYMPH ABS # 1.02 K/uL (1.2-3.4); NEUT % 60.7 %
[2016-08-10 11:27] VITALS: BP 116/65; PULSE 67; TEMP 36.6; O2SAT 98
[2016-08-10] MEDS ORDERED: RIVAROXABAN 10 MG TAB PO ONE (12:15)
[2016-08-10 15:37] VITALS: BP 139/82; PULSE 70; TEMP 36.5; O2SAT 97
--- NOTE | 2016-08-10 15:37 | Progress Note ---
Subjective Date of Service: August 10, 2016. Subjective Pt evaluation today including: conversation w/ patient, physical exam, lab review, conversation w/ cycle consultant, review of inpatient medication list Pain: no pain PO Intake: adequate Voiding: no voiding problems vision continues to be normal since yesterday, no diplopia better balance, walking around the nursing unit reviewed tele, actually went into atrial fibrillation last night at 140am and converted back to NSR around 540am this is cause of stroke, d/w patient, started on Xarelto (fee co-pay and better compliance likely compared to Coumadin) still with plans for LORETTA tomorrow, talked with Dr. Omalley even though walking better, therapy still recommends rehab 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 (2) Diplopia Status: Acute (3) Elevated troponin Status: Acute (4) Occipital stroke Status: Acute Review of Systems Neurologic: + balance problems All Other Systems: Reviewed and Negative Medications Current Inpatient Medications Medications (Trade) Dose Ordered Sig/Apollo Route Start Time Stop Time Status Last Admin Dose Admin Miscellaneous Information (Pharmacist Discharge Med Rec Consult) 1 ea UD PRN N/A 08/07/16 18:30 09/06/16 18:29 Al Hydrox/Mg Hydrox/Simethicone (Maalox Max Susp) 15 ml Q4H PRN PO 08/07/16 18:30 09/06/16 18:29 Magnesium Hydroxide (Milk Of Magnesia Susp) 30 ml Q12H PRN PO 08/07/16 18:30 09/06/16 18:29 Ondansetron HCl (Zofran Inj) 4 mg Q6H PRN IV 08/07/16 18:30 09/06/16 18:29 Polyethylene (Miralax Powder Packet) 17 gm DAILY PRN PO 08/07/16 18:30 09/06/16 18:29 Aspirin (Ecotrin Tab) 81 mg DAILY PO 08/08/16 09:00 09/07/16 08:59 08/10/16 08:04 81 MG Carvedilol (Coreg Tab) 6.25 mg BID PO 08/07/16 21:00 09/06/16 20:59 Future Hold 08/07/16 22:22 6.25 MG Lisinopril (Zestril Tab) 20 mg BID PO 08/07/16 21:00 09/06/16 20:59 Future Hold 08/07/16 22:22 20 MG Clopidogrel Bisulfate (plAVix TAB) 75 mg QAM PO 08/08/16 09:00 09/07/16 08:59 08/10/16 08:04 75 MG Atorvastatin Calcium (Lipitor Tab) 40 mg QPM PO 08/08/16 21:00 09/07/16 20:59 08/09/16 20:11 40 MG Rivaroxaban (Xarelto Tab) 20 mg QDD PO 08/11/16 16:45 09/10/16 16:44 Objective Vital Signs Date Time Temp Pulse Resp B/P Pulse Ox O2 Delivery O2 Flow Rate FiO2 08/10/16 15:18 Room Air 08/10/16 12:08 Room Air 08/10/16 11:27 36.6 67 18 116/65 98 Room Air 08/10/16 08:00 Room Air 08/10/16 07:33 36.4 73 18 114/75 97 Room Air 08/10/16 04:12 Room Air 08/10/16 03:45 36.9 85 18 105/61 96 Room Air 08/10/16 00:09 36.7 69 18 118/63 95 Room Air 08/10/16 00:00 Room Air 08/09/16 20:00 Room Air 08/09/16 19:38 37.0 71 18 121/71 98 Room Air 08/09/16 15:48 36.5 76 18 129/71 96 Room Air Physical Exam General Appearance: WD/WN, no apparent distress Eyes: normal inspection, PERRL, EOMI, sclerae normal ENT: normal ENT inspection, hearing grossly normal, pharynx normal Neck: supple, no adenopathy, no JVD, trachea midline Respiratory/Chest: chest non-tender, lungs clear, normal breath sounds, no respiratory distress, no accessory muscle use Cardiovascular: regular rate, rhythm, no edema, no gallop, no JVD, no murmur Abdomen: normal bowel sounds, non tender, soft, no organomegaly Extremities: normal range of motion, non-tender, normal inspection, no pedal edema, no calf tenderness Neurologic/Psychiatric: 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, no motor/sensory deficits, alert, normal mood/affect, oriented x 3, + abnormal gait (wide based) Skin: normal color, warm/dry, no rash Laboratory Results Last 24 Hours Test 08/10/16 06:35 White Blood Count 4.09 K/uL Red Blood Count 4.37 M/uL Hemoglobin 13.2 g/dL Hematocrit 38.9 % Mean Corpuscular Volume 89.0 fL Mean Corpuscular Hemoglobin 30.2 pg Mean Corpuscular Hemoglobin Concent 33.9 g/dl Platelet Count 129 K/uL Mean Platelet Volume 9.7 fL Neutrophils (%) (Auto) 60.7 % Lymphocytes (%) (Auto) 24.9 % Monocytes (%) (Auto) 10.0 % Eosinophils (%) (Auto) 3.2 % Basophils (%) (Auto) 0.5 % Neutrophils # (Auto) 2.48 K/uL Lymphocytes # (Auto) 1.02 K/uL Monocytes # (Auto) 0.41 K/uL Eosinophils # (Auto) 0.13 K/uL Basophils # (Auto) 0.02 K/uL RDW Standard Deviation 43.9 fL RDW Coefficient of Variation 13.3 % Immature Granulocyte % (Auto) 0.7 % Immature Granulocyte # (Auto) 0.03 K/uL Sodium Level 145 mmol/L Potassium Level 3.9 mmol/L Chloride Level 112 mmol/L Carbon Dioxide Level 26 mmol/L Anion Gap 7.0 mmol/L Blood Urea Nitrogen 17 mg/dl Creatinine 1.10 mg/dl Est Creatinine Clear Calc Drug Dose 61.3 ml/min Estimated GFR () 79.0 Estimated GFR (Non- 68.1 BUN/Creatinine Ratio 15.3 Random Glucose 81 mg/dl Calcium Level 8.1 mg/dl Assessment and Plan 71 year 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 Occipital embolic stroke continue Aspirin, Plavix, Lipitor Echo - LA enlarged, one leaf of mitral valve dysfunctional causing regurgitation would try to get LORETTA on Thursday, will need to discuss with cardiology, Dr. Laughlin will decide tomorrow AM, NPO after midnight atrial fibrillation seen overnight, this is cause of embolic stroke, start on Xarelto rates were well controlled and went back to NSR spontaneously A1c at goal hypercoagulable work up sent, pending plan for rehab, possibly tomorrow if accepted after LORETTA Atrial fibrillation, paroxysmal: new diagnosis, likely cause of embolic stroke, started on Xarelto 20mg daily continue Coreg for rate control, was already taking prior to admission Elevated troponin discussed with cardiology, no chest pain, no EKG changes, no further work up recommended Mitral Valve regurgitation, LA enlarged mitral regurgitation seen on echocardiogram, LA enlarged should get LORETTA prior to discharge make NPO after midnight, Dr. Laughlin will decide tomorrow AM Cutaneous Lupus - Stable DVT ppx: teds, scds, ASA and plavix on board CODE STATUS: FULL CODE Disposition: From home, lives alone, CM to assist with discharge needs, plan for rehab, LORETTA tomorrow, started on Xarelto for AC, ask strategic partner development manager to provide free copay card
[2016-08-10 19:08] VITALS: BP 150/81; PULSE 73; TEMP 36.5; O2SAT 97
[2016-08-10] MEDS: CARVEDILOL 6.25 MG TAB PO SCH (19:59)
[2016-08-10] MEDS: ATORVASTATIN 40 MG TAB PO SCH (19:59)
[2016-08-10] MEDS: LISINOPRIL 20 MG TAB PO SCH (19:59)
[2016-08-11] VITALS (7 sets, daily range): BP systolic 109–138; BP diastolic 65–82; PULSE 69–92; TEMP 36.3–36.9; O2SAT 96–98
[2016-08-11] MEDS: CARVEDILOL 6.25 MG TAB PO SCH ×2 (07:39→19:27)
[2016-08-11] MEDS: CLOPIDOGREL BISULFATE 75 MG TAB PO SCH (07:39)
[2016-08-11] MEDS: ASPIRIN 81 MG ECTAB PO SCH (07:39)
[2016-08-11] MEDS: LISINOPRIL 20 MG TAB PO SCH ×2 (07:40→20:02)
--- NOTE | 2016-08-11 10:08 | Hospitalist Progress Note ---
Hospitalist Progress Note Date of Service August 11, 2016. Subjective Pt evaluation today including: conversation w/ patient, physical exam, chart review, lab review, review of studies, review of inpatient medication list Patient seen and evaluated. Sitting up in bedside chair. Reports feeling well. He has been up ambulating without difficulty and reports normal vision without diplopia or blurring. Denies lightheadedness. Tolerating diet without abdominal pain, nausea, or vomiting. Constitutional: No chills, No fever Eyes: No worsening of vision ENT: No sore throat Respiratory: No cough, No shortness of breath Cardiovascular: No chest pain Abdomen: No constipation, No diarrhea, No nausea, No pain, No vomiting Musculoskeletal: No muscle pain, No swelling Male : No dysuria Neurologic: No balance problems, No vertigo Heme: No abnormal bleeding/bruising Skin: No rash Medications Current Inpatient Medications Medications (Trade) Dose Ordered Sig/Apollo Route Start Time Stop Time Status Last Admin Dose Admin Al Hydrox/Mg Hydrox/Simethicone (Maalox Max Susp) 15 ml Q4H PRN PO 08/07/16 18:30 09/06/16 18:29 Magnesium Hydroxide (Milk Of Magnesia Susp) 30 ml Q12H PRN PO 08/07/16 18:30 09/06/16 18:29 Ondansetron HCl (Zofran Inj) 4 mg Q6H PRN IV 08/07/16 18:30 09/06/16 18:29 Polyethylene (Miralax Powder Packet) 17 gm DAILY PRN PO 08/07/16 18:30 09/06/16 18:29 Aspirin (Ecotrin Tab) 81 mg DAILY PO 08/08/16 09:00 09/07/16 08:59 08/11/16 07:39 81 MG Carvedilol (Coreg Tab) 6.25 mg BID PO 08/07/16 21:00 09/06/16 20:59 Future hold 08/11/16 07:39 6.25 MG Lisinopril (Zestril Tab) 20 mg BID PO 08/07/16 21:00 09/06/16 20:59 Future hold 08/11/16 07:40 20 MG Clopidogrel Bisulfate (plAVix TAB) 75 mg QAM PO 08/08/16 09:00 09/07/16 08:59 5/22/17 07:39 75 MG Atorvastatin Calcium (Lipitor Tab) 40 mg QPM PO 08/08/16 21:00 09/07/16 20:59 08/10/16 19:59 40 MG Rivaroxaban (Xarelto Tab) 20 mg QDD PO 08/11/16 16:45 09/10/16 16:44 Objective Vital Signs Date Time Temp Pulse Resp B/P Pulse Ox O2 Delivery O2 Flow Rate FiO2 08/11/16 07:34 36.7 78 20 138/82 97 Room Air 08/11/16 04:00 Room Air 08/11/16 03:56 36.5 92 18 132/68 96 Room Air 08/11/16 00:00 36.3 69 18 123/74 96 Room Air 08/11/16 00:00 Room Air 08/10/16 20:00 Room Air 08/10/16 19:08 36.5 73 19 150/81 97 Room Air 08/10/16 15:37 36.5 70 18 139/82 97 Room Air 08/10/16 15:18 Room Air 08/10/16 12:08 Room Air 08/10/16 11:27 36.6 67 18 116/65 98 Room Air Physical Exam General Appearance: WD/WN, no apparent distress, + thin Eyes: sclerae normal ENT: hearing grossly normal Neck: supple, no JVD, trachea midline Respiratory/Chest: lungs clear, normal breath sounds, no respiratory distress, no accessory muscle use Cardiovascular: regular rate, rhythm, no gallop, + systolic murmur Abdomen: normal bowel sounds, non tender, soft Extremities: no pedal edema, no calf tenderness Neurologic/Psychiatric: alert, oriented x 3 Skin: normal color, warm/dry Assessment and Plan 71 year old male with a PMHx of cutaneous lupus and mitral valve enlargement presented to [facility] with blurred vision and found to have a 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 Occipital Embolic Stroke: - Continue ASA 81 mg daily, Plavix 75 mg daily, and Lipitor 40 mg daily - Hypercoagulable work-up - pending Paroxysmal Atrial fibrillation - New Diagnosis - Coreg 6.25 mg BID and Xarelto 20 mg daily (will evaluated co-pay) HTN: - Lisinopril 20 mg BID Elevated Troponin: - Cardiology following - no chest pain, no EKG changes, no further work up recommended Mitral Valve Regurgitation, LA Enlarged - Mitral regurgitation seen on echocardiogram, LA enlarged - Consideration for LORETTA - Dr. Laughlin evaluated and patient follows with [facility] - Dr. Mir - Placed consult for [id number] cards - recommendations appreciated - outpatient LORETTA? Cutaneous Lupus: Stable DVT Prophylaxis: TEDs/SCDs, ASA/Plavix, Xarelto Code Status: FULL RESUSCITATION Disposition: - Await cardiology input - need Xarelto checked for affordability - [facility] request (possibly tomorrow)
--- NOTE | 2016-08-11 15:19 | Cardiology Follow-Up ---
Subjective Subjective Date of Service: August 11, 2016. Pt evaluation today including: conversation w/ patient, physical exam, chart review, lab review, review of studies, conversation w/ construction safety consultant, review of inpatient medication list Additional Details: Patient's primary photography manager is Dr. Mir, we will be assuming his cardiac care. Appreciate evaluation by Dr. Laughlin. Pt seen and examined, states that he feels fine now. Diplopia resolved. Denies cp, sob, palpitations, lightheadedness or dizziness. Tele reviewed: sinus rhythm without arrhythmia or significant ectopy. 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 (2) Diplopia Status: Acute (3) Elevated troponin Status: Acute (4) Occipital stroke Status: Acute Review of Systems Constitutional: No chills, No fever Eyes: No worsening of vision ENT: No sore throat Respiratory: No cough, No dyspnea at rest, No dyspnea on exertion, No hemoptysis, No problem reported, No see HPI, No shortness of breath, No sputum, No wheezing Cardiac: No PND, No chest pain, No claudication, No edema, No orthopnea, No palpitations, No problem reported, No see HPI Abdomen: No constipation, No diarrhea, No nausea, No pain, No vomiting Musculoskeletal: No muscle pain, No swelling Male : No dysuria Neurologic: No balance problems, No vertigo Heme: No abnormal bleeding/bruising Skin: No rash Objective Vital Signs Last Vital Signs Documentation Date Time Temp Pulse Resp B/P Pulse Ox O2 Delivery O2 Flow Rate FiO2 08/11/16 12:00 Room Air 08/11/16 11:24 36.4 85 20 109/66 98 Physical Exam: General Appearance: WD/WN, no apparent distress, + thin, + pertinent finding ( dysarthria) Eyes: bilateral eyes EOMI, bilateral eyes PERRL, bilateral eyes normal inspection ENT: normal ENT inspection, hearing grossly normal, pharynx normal Neck: supple, no adenopathy, thyroid normal, no JVD, no carotid bruits, trachea midline Respiratory/Chest: lungs clear, normal breath sounds, no respiratory distress, no accessory muscle use Cardiovascular: regular rate, rhythm, no edema, no JVD, + systolic murmur (3/6 holosystolic, LSB, 5th ICS midclavicular line with radiation to axilla), + gallop/S4 Abdomen: normal bowel sounds, non tender, soft, no organomegaly Extremities: normal inspection, no pedal edema, no calf tenderness 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 visual change resolved brain MRI with scattered punctate foci given his severe mitral regurgitation and severe left atrial enlargement would suspect his risk of atrial arrhythmia to be approaching 100% believe he would benefit from anticoagulation patient's living status ([place] in the [facility]) does complicate matters ideally would like coumadin but patient would be unable to have blood drawn frequently that leaves us with choice of NOAC's, however, concern there would be cost and risk of bleeding with injury my preference would be to place him on Pradaxa given that a reversal agent is commercially available but I believe cost will be the deciding factor, will ask case management to look into pricing 2. severe mitral regurgitation after a lengthy discussion patient is now willing to undergo surgical evaluation and ultimately mitral valve replacement to facilitate this we will perform a LORETTA in the AM for better visualization of the anatomy further arrangements will then be made as an outpatient in our office npo after midnight tonight
[2016-08-11] MEDS ORDERED: RIVAROXABAN 20 MG TAB PO SCH (16:45)
[2016-08-11] MEDS ORDERED: NURSING VERBAL MED ORDER ONE (18:15)
[2016-08-11] MEDS: ATORVASTATIN 40 MG TAB PO SCH (19:27)
[2016-08-12] VITALS (17 sets, daily range): BP systolic 121–167; BP diastolic 73–88; PULSE 70–108; TEMP 36.4–36.7; O2SAT 94–99
[2016-08-12] MEDS ORDERED: BENZOCAIN/TETRACA/BUTAM SPRAY 200 APPLN/20 GM SPRY ONE (08:07)
[2016-08-12] MEDS ORDERED: MIDAZOLAM HCL 1 MG/ML 2ML VIAL ONE (08:07)
[2016-08-12] MEDS ORDERED: FENTANYL CITRATE INJ 50 MCG/1 ML 2 ML VIAL ONE (08:07)
[2016-08-12] MEDS ORDERED: GLYCOPYRROLATE INJ 0.2 MG/ML VIAL ONE (08:08)
[2016-08-12] MEDS ORDERED: CANNULA ONE ×2 (08:08)
--- NOTE | 2016-08-12 09:31 | Procedure Note ---
Pre-Mod Sedation Assessment General Date of Moderate Sedation: August 12, 2016. Vital Signs: Vital Signs Past 12 Hours Date Time Temp Pulse Resp B/P Pulse Ox O2 Delivery O2 Flow Rate FiO2 08/12/16 08:32 75 14 153/83 96 Room Air 08/12/16 07:28 36.6 70 16 132/78 97 Room Air 08/12/16 04:00 Room Air 08/12/16 03:56 36.7 74 18 128/86 96 Room Air 08/11/16 23:59 Room Air 08/11/16 23:52 36.8 70 18 125/79 96 Room Air Review Cardiovascular: regular rate, rhythm, no edema, no JVD, normal peripheral pulses, + systolic murmur, + gallop/S4 Abdomen: normal bowel sounds, non tender, soft, no organomegaly, no pulsatile mass Lungs: chest non-tender, lungs clear, normal breath sounds, no respiratory distress, no accessory muscle use Airway Class: III Pre-Sedation Airway Assessment Oral Cavity: Chipped Teeth, Dental Abnormalities Short Thick Neck: No Hx of Sleep Apnea: No Smoking Status: Former Smoker Notes The planned sedation has been discussed with the patient and consent obtained. I have identified the patient, determined the appropriateness of sedation and have assessed the patient immediately prior to the procedure. All medicine(s) and interventions are by my order.
--- NOTE | 2016-08-12 09:34 | [facility] Post Operative Brief Note ---
Immediate Operative Summary Operative Date August 12, 2016. Pre-Operative Diagnosis severe mitral regurgitation with flail P2 leaflet Post-Operative Diagnosis same Procedure(s) Performed LORETTA Surgeon Ward Senior Java Programmer Analyst Surgeon(s) Lisa HERNANDEZ Estimated Blood Loss none Findings severe mitral regurgitation with a flail P2 segment Specimens none Anesthesia Start time: 906 Stop time: 920 Versed 4mg, Fentanyl 100mg Disposition CPL
--- NOTE | 2016-08-12 09:34 | Procedure Note ---
Post-Mod Sedation Assessment General Date of Moderate Sedation August 12, 2016. Vital Signs: Vital Signs Past 12 Hours Date Time Temp Pulse Resp B/P Pulse Ox O2 Delivery O2 Flow Rate FiO2 08/12/16 08:32 75 14 153/83 96 Room Air 08/12/16 07:28 36.6 70 16 132/78 97 Room Air 08/12/16 04:00 Room Air 08/12/16 03:56 36.7 74 18 128/86 96 Room Air 08/11/16 23:59 Room Air 08/11/16 23:52 36.8 70 18 125/79 96 Room Air Review - Discharge Criteria Vital Signs Stable: Yes Alert/Oriented/Conversant: Yes Returned to Baseline Mental St: Yes Nausea Absent/Minimal: Yes Pain/Discomfort/Absent/Minimal: Yes Normal/Baseline Respirations: Yes Active Bleeding?: No Pt Received D/C Instructions: No
--- NOTE | 2016-08-12 10:03 | Cardiology Follow-Up ---
Subjective Subjective Date of Service: August 12, 2016. Pt evaluation today including: conversation w/ patient, physical exam, chart review, lab review, review of studies, review of inpatient medication list Additional Details: Pt seen and examined, states that he feels well. Diplopia resolved. Denies cp, sob, palpitations, lightheadedness or dizziness. Tele reviewed: sinus rhythm without arrhythmia or significant ectopy. 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 (2) Diplopia Status: Acute (3) Elevated troponin Status: Acute (4) Occipital stroke Status: Acute Review of Systems Constitutional: No chills, No fever Eyes: No worsening of vision ENT: No sore throat Respiratory: No cough, No dyspnea at rest, No dyspnea on exertion, No hemoptysis, No problem reported, No see HPI, No shortness of breath, No sputum, No wheezing Cardiac: No PND, No chest pain, No claudication, No edema, No orthopnea, No palpitations, No problem reported, No see HPI Abdomen: No constipation, No diarrhea, No nausea, No pain, No vomiting Musculoskeletal: No muscle pain, No swelling Male : No dysuria Neurologic: No balance problems, No vertigo Heme: No abnormal bleeding/bruising Skin: No rash Objective Vital Signs Last Vital Signs Documentation Date Time Temp Pulse Resp B/P Pulse Ox O2 Delivery O2 Flow Rate FiO2 08/12/16 09:50 88 20 136/73 96 Room Air 08/12/16 09:40 2 08/12/16 07:28 36.6 Physical Exam: General Appearance: WD/WN, no apparent distress, + thin, + pertinent finding ( dysarthria) Eyes: bilateral eyes EOMI, bilateral eyes PERRL, bilateral eyes normal inspection ENT: normal ENT inspection, hearing grossly normal, pharynx normal Neck: supple, no adenopathy, thyroid normal, no JVD, no carotid bruits, trachea midline Respiratory/Chest: lungs clear, normal breath sounds, no respiratory distress, no accessory muscle use Cardiovascular: regular rate, rhythm, no edema, no JVD, + systolic murmur (3/6 holosystolic, LSB, 5th ICS midclavicular line with radiation to axilla), + gallop/S4 Abdomen: normal bowel sounds, non tender, soft, no organomegaly Extremities: normal inspection, no pedal edema, no calf tenderness 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 visual change resolved brain MRI with scattered punctate foci given his severe mitral regurgitation and severe left atrial enlargement would suspect his risk of atrial arrhythmia to be approaching 100% believe he would benefit from anticoagulation patient's living status (a remote cabin in the [facility]) does complicate matters ideally would like coumadin but patient would be unable to have blood drawn frequently that leaves us with choice of NOAC's, however, concern there would be cost and risk of bleeding with injury my preference would be to place him on Pradaxa given that a reversal agent is commercially available Pradaxa would be the cheapest option, recommend appreciate case management looking into pricing 2. severe mitral regurgitation after a lengthy discussion patient is now willing to undergo surgical evaluation and ultimately mitral valve replacement LORETTA confirmed transthoracic findings will arrange for CT surgery eval as an outpatient, my office will arrange ok to d/c to home from cardiac standpoint
[2016-08-12] MEDS: ASPIRIN 81 MG ECTAB PO SCH (12:37)
[2016-08-12] MEDS: CLOPIDOGREL BISULFATE 75 MG TAB PO SCH (12:37)
[2016-08-12] MEDS: CARVEDILOL 6.25 MG TAB PO SCH (12:38)
--- NOTE | 2016-08-12 14:41 | TEE ---
*NOTICE TO RECEIVING LIBERTARIAN AGENCY This information is strictly Confidential and protected under [place] law. [place] law prohibits you from making any further disclosure of this information unless further disclosure is expressly permitted by the written consent of the person to whom it pertains or is authorized by law. A general authorization for the release of medical or other information is not sufficient for this purpose. Hospital accepts no responsibility if the information is made available to any other person, INCLUDING THE PATIENT. Interpretation Summary * Name: YANETH HENRIQUEZ Study Date: 08/12/2016 08:57 AM BP: 153/83 mmHg * Patient Location: C.2T\S\S237\S\1 HR: 75 * : 1945 (M/d/yyy) Gender: Male Height: 68 in * Age: 71 yrs Ethnicity: CA Weight: 164 lb * Ordering Physician: Deny Hopper DO * Performed By: Gabbie Juarez * * Reason For Study: MITRAL REGURGITATION * BSA: 1.9 m2 * -- Conclusions -- * Normal LV chamber size and systolic function. * Flail P2 segment with severe regurgitation. Regurgitant jet is anteriorly directed. * Severely dilated LA chamber. Procedure Details * The transesophageal portion of this study was personally supervised by the undersigned interpreting physician. * LORETTA Probe #3 utilized for procedure. Probe was inserted at 9:07am, and was taken out at 9:29am. * The study was performed in Cardiopulmonary Department. * Time out was conducted by the physician, nurse, and special technical operations officer with positive identification of patient and procedure. * Informed consent for Transesophageal Echocardiogram was obtained prior to the procedure. * An intravenous line was placed. A topical anesthetic agent was used for oropharangeal anesthesia. A bite block was inserted. * The patient's vital signs, including blood pressure, heart rate, pulse oximetry and cardiac rhythm were monitored throughout the procedure . * Fentanyl 100 mcg was administered for procedural sedation. * Midazolam 4 mg administered for sedation. * The posterior oropharynx was anesthetized using a topical anesthetic spray. A bite guard was inserted. * A multifrequency, multiplane transesopheageal echocardiographic endoscope was inserted and manipulated in the standard fashion to achieve multiplane views. * The usual views were obtained; basal, mid-esophageal, transgastric and aortic views. * A 2D transesophageal echocardiogram with spectral and color flow Doppler was performed. * The patient tolerated the procedure well without evidence of orophangeal or esophageal trauma. * Contrast injection with agitated saline was performed. Left Ventricle * The left ventricle is normal in size. * Left ventricular systolic function is normal. Atria * The left atrium is severely dilated. * No left atrial mass or thrombus visualized. * Right atrial size is normal. * A prominent eustachian valve is noted. * The interatrial septum is intact with no evidence for an atrial septal defect. Mitral Valve * Flail P2 segment with severe regurgitation. Regurgitant jet is anteriorly directed. * There is no mitral valve stenosis. Tricuspid Valve * The tricuspid valve is normal in structure and function. Aortic Valve * The aortic valve is normal in structure and function. Pulmonic Valve * The pulmonary valve is not well seen, but the Doppler examination is normal without significant regurgitation or stenosis. Great Vessels * The aortic root and proximal ascending aorta are normal sized. Pericardium * There is no pericardial effusion.
[2016-08-12] MEDS ORDERED: LPT40 PO (14:47)
[2016-08-12] MEDS ORDERED: PLV75 PO (14:47)
[2016-08-12] MEDS ORDERED: PRD75 PO (14:47)
--- NOTE | 2016-08-12 14:49 | Discharge Instructions ---
Discharge Instructions Date of Service August 12, 2016. Admission Reason for Admission: Blurred Vision Discharge Discharge Diagnosis / Problem: Stroke and Paroxysmal Atrial Fibrillation Discharge Goals Goal(s): Decrease discomfort, Improve function, Increase independence Activity Recommendations Activity Limitations: as noted below Lifting Limitations: gradually increase as tolerated Exercise/Sports Limitations: gradually increase as tolerated Shower/Bathe: no limitations . Instructions / Follow-Up Instructions / Follow-Up Occipital Embolic Stroke: - Continue Plavix and aspirin daily - these are anti-platelet medications that help the platelets (clotting elements in the blood) to not stick together and are slightly different then Pradaxa which is a blood thinning medication - Follow-up with neurology (stroke specialists) in one month Paroxysmal Atrial fibrillation and Mitral Valve Regurgitation - Coreg 6.25 mg twice a day and Pradaxa (blood thinner) - you will take this twice a day - You will be provided with a card to help cover the co-pay for this medication for the first month - This medication does not have food restrictions and does not require routine testing like the blood thinner Coumadin - Be mindful that you can bruise more easily on this medication - If you notice bleeding make sure to apply pressure to the area. Follow-Up: - See cardiology as previously established with Dr. Mir - See neurology (stroke specialists) in one month - See family doctor in 7-10 days Risk Factors for Stroke: You can reduce your chances of stroke by working with your medical provider to adopt a healthy lifestyle. Some specific ways to lower your chance of stroke are: * If you are a smoker, now is the time to stop smoking cigarettes * If you are diabetic, improve the control of your blood sugars * Avoid excessive amounts of alcohol * Control high blood pressure * Lose weight if you are overweight * Be sure to lead an active lifestyle * Eat a healthy diet low in salt, cholesterol and fat You should know about other risk factors for stroke that you are unable to control. These include: * Age 55 years or older * Male gender * Certain racial groups: , or / * Family History of Stroke, Mini stroke or Heart Attack * Sickle Cell Disease Follow Up: It is important for you to keep your follow up appointments with your medical provider. Current Hospital Diet Patient's current hospital diet: Regular Diet, AHA Diet (Heart Healthy) Discharge Diet Recommended Diet: AHA Diet (Heart Healthy) Procedures Procedures Performed: LORETTA Pending Studies Studies pending at discharge: no Laboratory Results Hemoglobin A1c Test 08/07/16 15:17 Range/Units Estimated Average Glucose 120 mg/dl Hemoglobin A1c 5.8 H 4.5-5.6 % Lipid Panel Test 08/08/16 06:09 Range/Units Triglycerides Level 77 0-150 mg/dl Cholesterol Level 116 0-200 mg/dl HDL Cholesterol 32 mg/dl Cholesterol/HDL Ratio 3.6 LDL Cholesterol, Calculated 69 mg/dl Medical Emergencies . Who to Call and When: Medical Emergencies: Call 911 immediately if you experience any of the following warning signs and symptoms of Stroke: * Sudden numbness or weakness of the face, arm or leg, especially on one side of the body * Sudden confusion, trouble speaking or understanding * Sudden trouble seeing in one or both eyes * Sudden trouble walking, dizziness, loss of balance or coordination * Sudden severe headache with no cause Do not delay calling 911 if you experience any warning signs or symptoms of a stroke. Delay in seeking medical attention may affect what treatments can be given to you. . Non-Emergent Contact Non-Emergency issues call your: Primary Care Provider Call Non-Emergent contact if: you have a fever, your pain is concerning you, you have any medication questions . . "Provider Documentation" section prepared by Jess Mclaughlin. . Stroke Core Measures Reason no t-PA for Stroke: Contraindicated Reason no antithrom by day 2: Treatment provided - N/A Reason no antithrom at D/C: Treatment provided - N/A Reason no statin at D/C: Treatment provided - N/A Reason no anticoag w/a fib: Treatment provided - N/A VTE Core Measure Inpt VTE Proph given/why not?: Other Anticoagulation (Pradaxa)
[2016-08-12] MEDS ORDERED: DABI150C PO (15:19)
[2016-08-12] MEDS: LISINOPRIL 20 MG TAB PO SCH (15:44)
--- NOTE | 2016-08-12 16:48 | Pharmacy Progress Note ---
Pharmacist Stroke Counseling Date of Service August 12, 2016. Scope Pharmacy has been consulted to provide medication discharge counseling for this patient admitted with ischemic stroke as per the Pharmacist Discharge Counseling for Stroke Patients Protocol. Medications on Discharge New Medications: Dabigatran Etexilate Mesylate (Pradaxa) 150 Mg Cap 1 CAP PO BID for 30 Days, #60 CAP 1 Refill Atorvastatin (Atorvastatin Calcium) 40 Mg Tab 40 MG PO QPM for 30 Days, #30 TAB Clopidogrel Bisulfate (Clopidogrel) 75 Mg Tab 75 MG PO QAM for 30 Days, #30 TAB Continued Medications: Aspirin (Aspirin Ec) 81 Mg Tab 81 MG PO DAILY Carvedilol (Coreg) 6.25 Mg Tab 6.25 MG PO BID, TAB [Lisinopril ] () 20 MG PO BID, 0 Refills Discontinued Medications: Simvastatin (Zocor) 20 Mg Tab 20 MG PO QPM, TAB Patient is mentally challenged. His brothers and [id number] help him with his medications and doctor appointments. I spoke with the patient and his sister -in-law, who has experience taking care of her parents. Action The above medications, specifically ones for stroke treatment/prophylaxis, have been reviewed in detail with the patient and/or patient medical detail representative(s) prior to discharge. This includes indication, common adverse reactions, drug interactions, and medication administration. Medication counseling has been employed using the teach-back method to ensure understanding. They are aware that he will be taking a different statin, and may have one of the antiplatelets dc'd in a few months by their doctor(s). He is concerned about a skin tear on his valdivia, and they know to call the doctor if it starts actively bleeding. Outcome The patient and/or patient representatives have demonstrated understanding of the medications. Please note, they are aware that the pharmacist will call them within 72 hours post-discharge to confirm that the appropriate medications are being taken and answer any further medication related questions the patient might have at that time. Contact information Individual to be contacted: Jessica Carey Relationship to patient (if applicable): [id number] Phone number: [phone] (home), if not there may try cell [phone] Best time to call: anytime Thank you for allowing pharmacy to be involved in the care of this patient. Please call [phone] or [phone] with any additional questions
--- NOTE | 2016-08-12 17:17 | Discharge Summary ---
Discharge Summary Date of Service August 12, 2016. Discharge Summary Admission Date: August 07, 2016 at 18:40 Discharge Date: August 12, 2016 Discharge Disposition: Home Principal Diagnosis: Occipital CVA and Paroxysmal Atrial Fibrillation Problems/Secondary Diagnoses: 1. Hypertension 2. Mitral Valve Regurgitation 3. Cutaneous Lupus Immunizations: Have You Had Influenza Vaccine: Unknown History of Tetanus Vaccine?: Unknown History of Pneumococcal: Yes History of Hepatitis B Vaccine: No Procedures: 1. TRANSESOPHAGEAL ECHOCARDIOGRAM * -- Conclusions -- * Normal LV chamber size and systolic function. * Flail P2 segment with severe regurgitation. Regurgitant jet is anteriorly directed. * Severely dilated LA chamber. 2. TRANSTHORACIC ECHOCARDIOGRAM * -- Conclusions -- * There is mild concentric left ventricular hypertrophy. * Left ventricular systolic function is normal. * Grade I diastolic dysfunction, (abnormal relaxation pattern). * The left atrium is severely dilated. * The leaflets are thickened and there is a flail segment of the posterior leaflet * At least moderate MR * Right ventricular systolic pressure is normal. 3. HEAD CTA FINDINGS: Potential subacute left periventricular infarct left occipital lobe. No evidence for acute intracranial hemorrhage. Visualized intracranial internal carotid arteries, distal vertebral arteries, and basilar artery are widely patent. There is no significant stenosis, occlusion, or aneurysm seen within the bilateral ACAs, MCAs, or hourly shift. IMPRESSION: No significant stenosis, occlusion, or aneurysm within the [place]. Possible subacute infarct left occipital lobe. Mild chronic small vessel change. No acute intracranial hemorrhage. 4. Brain MRI WITHOUT CONTRAST FINDINGS: Diffusion-weighted images demonstrate punctate foci of acute ischemic change involving both cerebellar hemispheres, as well as scattered cortical and subcortical regions of the cerebral hemispheres bilaterally. Mild chronic small vessel change throughout both cerebral hemispheres. Ventricular system is midline. Sella and parasellar regions are unremarkable. Internal artery canals are symmetric. IMPRESSION: Scattered punctate foci of acute ischemic change throughout the cerebellar as well as cerebral hemispheres. All findings are peripheral in location consistent with small vessel change 5. NECK CTA FINDINGS: The aortic arch and proximal great vessels are widely patent. There is no significant stenosis, occlusion, or dissection identified within the bilateral common carotid, internal carotid, or vertebral arteries. Mild atherosclerotic change carotid bifurcations IMPRESSION: No significant stenosis, occlusion, or dissection identified within the carotid or vertebral arteries. Mild scattered atherosclerotic change 6. NECK MRA FINDINGS: The aortic arch and proximal great vessels are widely patent. There is no significant stenosis, occlusion, or dissection identified within the bilateral common carotid, internal carotid, or vertebral arteries. Right vertebral artery is small in caliber up presumably on a congenital basis. There is mild plaque dimension of the carotid bifurcations with no major stenotic process. Probable atherosclerotic narrowing of the distal vertebral artery. IMPRESSION: 1. Small caliber right vertebral artery with superimposed atherosclerotic narrowing at its distal aspect. 2. Minimal/mild atherosclerotic change carotid bifurcations with no significant stenotic process. 7. Brain MRA FINDINGS: Dominant left vertebral artery. Right vertebral artery is congenitally small with superimposed considerable atherosclerotic change distally. It has very small caliber at its distal margins. Structures the anterior and middle cerebral circulations demonstrate slight vascular truncation at its extreme peripheral margins. A major central stenotic process is not seen. Major vascular occlusion is not identified. There is no evidence for aneurysmal distention. IMPRESSION: 1. Slight truncation of the extreme peripheral vasculature of the anterior middle and posterior cerebral circulation, consistent with peripheral small vessel narrowing. 2. Very small caliber right vertebral artery presumably on a congenital basis with superimposed narrowing at its distal margins presumably atherosclerotic. 3. Left vertebral artery is dominant with the basilar artery unremarkable. 4. No evidence for aneurysmal dilatation Consultations: 1. Neurology 2. Cardiology - [facility] [place] and [facility] Medication Reconciliation New Medications: Dabigatran Etexilate Mesylate (Pradaxa) 150 Mg Cap 1 CAP PO BID for 30 Days, #60 CAP 1 Refill Atorvastatin (Atorvastatin Calcium) 40 Mg Tab 40 MG PO QPM for 30 Days, #30 TAB Clopidogrel Bisulfate (Clopidogrel) 75 Mg Tab 75 MG PO QAM for 30 Days, #30 TAB Continued Medications: Aspirin (Aspirin Ec) 81 Mg Tab 81 MG PO DAILY Carvedilol (Coreg) 6.25 Mg Tab 6.25 MG PO BID, TAB [Lisinopril ] () 20 MG PO BID, 0 Refills Discontinued Medications: Simvastatin (Zocor) 20 Mg Tab 20 MG PO QPM, TAB Discharge Exam Review of Systems: Constitutional: No chills, No fever Eyes: No diplopia, No worsening of vision ENT: No nasal symptoms, No sore throat, No trouble swallowing Respiratory: No cough, No shortness of breath Cardiovascular: No chest pain, No palpitations Abdomen: No constipation, No diarrhea, No nausea, No pain, No vomiting Musculoskeletal: No calf pain, No swelling Genitourinary - Male: No dysuria Neurologic: No balance problems, No vertigo Hematologic / Lymphatic: No abnormal bleeding/bruising, No clotting problems Integumentary: No rash Physical Exam: General Appearance: WD/WN, no apparent distress Eyes: sclerae normal ENT: hearing grossly normal Neck: supple, no JVD, trachea midline Respiratory/Chest: lungs clear, normal breath sounds, no respiratory distress, no accessory muscle use Cardiovascular: regular rate, rhythm, no gallop, + systolic murmur Abdomen / GI: normal bowel sounds, non tender, soft Extremities: no calf tenderness, no pedal edema Neurologic/Psychiatric: no motor/sensory deficits, alert, oriented x 3, + pertinent finding (intellectual disabilities) Skin: normal color, warm/dry Hospital Course ADMISSION: 71 year old male with a PMH of cutaneous lupus and mitral regurgitation with a 1 day history of blurry vision. He says both his central and peripheral vision are affected. He did not experience any eye pain or any abnormal discharge from his eye. He woke up this morning felt his normal self. Shortly after making a phone call to a family friend he started experiencing blurred vision. The change in vision was sudden. He then phoned his in-law to go to the doctor. When his in-law saw him she noticed that he his eye was looking out to the side. They went to their family doc who sent them to [facility] who then sent him into the emergency department. He didn't experience any headache, facial weakness, slurred speech, difficulty swallowing , arm weakness, leg weakness, neck stiffness, palpitations, chest pain, dizziness, shortness of breath, or cough. HOSPITAL COURSE: Mr. Carey was admitted for acute occipital embolic stroke and 3rd cranial nerve palsy. He was initiated on ASA 81 mg daily with neurology recommendations to continue 1-3 months than D/C unless warranted from a cardiology standpoint. He was also initiated on Plavix 75 mg daily and Lipitor 40 mg daily. During telemetry monitoring he was noted to have a short episode of atrial fibrillation that spontaneously converted to NSR. Given this finding and his significant mitral regurgitation he was initiated on anti-coagulation. He underwent transthoracic echocardiogram and transesophageal echocardiogram with conclusions placed in procedures above. He was continued to Coreg 6.25 mg BID for rate control. Given patient's home arrangements of [place] and difficulty travelling for INR checks Coumadin was not recommended. This would be ideal in the setting of monitoring and reversal but NOACs were considered. However, all did come with a monthly copay but discussed with patient and [id number] Jessica who is in agreement to pursue. With recommendations from cardiology he was instituted on Pradaxa 150 mg BID and prescribed a one monthly supply. Disposition: - Patient's [id number] Jessica reports she setup appointment with cardiology for August 22 -- Per neurology - continue ASA daily x 1-3 months and can D/C unless otherwise deemed by cardiology -- Plan for possible surgical replacement of mitral valve in future - Provided Pradaxa co-pay card to try and receive first month co-pay free but is in agreement to pay co-pay of $40/month - Follow-up with neurology clinic in one month - Hypercoagulable work-up is pending Total Time Spent: Greater than 30 minutes This includes examination of the patient, discharge planning, medication reconciliation, and communication with other providers. Discharge Instructions Please refer to the electronic Patient Visit Report (Discharge Instructions) for additional information. Additional Copies To Kofi Mir D.O.; Clarisa Hale PA-C
[2016-08-12] MEDS ORDERED: DABIGATRAN ELEXILATE 75 MG CAP PO SCH (21:00)
[2016-08-13 02:11] LABS: B2 GLYCOPROTEIN IGA >150 SAU (<=20); B2 GLYCOPROTEIN IGG <9 SGU (<=20); B2 GLYCOPROTEIN IGM <9 SMU (<=20); LUPUS ANTICOAGULANT** TC36573X Negative (Negative)
--- NOTE | 2016-08-14 09:44 | Pharmacy Progress Note ---
Pharmacist Post D/C Phone Note Date of phone call: August 14, 2016. Individual with whom pharmacist spoke to: Jessica- sister in law The following questions were reviewed during the phone call with responses listed below each: Can you tell me the medications that you are currently taking as well as when and how you take each medication? Medications Dose Route/Sig Max Daily Dose Days Date Category Pradaxa (Dabigatran Etexilate Mesylate) 150 Mg Cap 1 Cap PO BID 30 08/12/16 Rx Atorvastatin Calcium (Atorvastatin) 40 Mg Tab 40 Mg PO QPM 30 08/12/16 Rx Clopidogrel (Clopidogrel Bisulfate) 75 Mg Tab 75 Mg PO QAM 30 08/12/16 Rx Aspirin Ec (Aspirin) 81 Mg Tab 81 Mg PO DAILY 08/07/16 Reported Coreg (Carvedilol) 6.25 Mg Tab 6.25 Mg PO BID 01/22/12 Reported Lisinopril 20 Mg PO BID 08/02/06 Reported When have you missed any doses of your medications? - NONE What side effects are you having from your medications? - NONE What questions do you have about your medications? - discussed proper storage for Pradaxa What problems are you having obtaining your medications? - NONE When is your next appointment with your primary care doctor? - August 19, family doctor; August 22, insurance claims examiner; August 29, thoracic eval; September 08 , neurology Additional comments: - Luis has good support from Jessica and she is helping him stay organized and making healthy lifestyle changes. As per the Pharmacist Discharge Counseling for Stroke Patients Protocol, this phone call has been completed within 72 hours of discharge. Thank you for allowing us to be involved in the care of this patient.
== END 2016-08-12 16:31 | disposition home or self-care (01) | DRG 66 ==
LOC: ENRESERVTM → ENRESERVDT → C.EDB 14:37 → C.2T 18:40 → EDBEDREQ 18:48
PROVIDERS: ADMIT Internal Medicine; ATTEND Hospitalist
PROC: B246ZZ4 Ultrasonography of Right and Left Heart, Transesophageal (ICD-10-PCS; principal; 2016-08-12 09:00)
DX: I63.9 Cerebral infarction, unspecified (principal); H53.2 Diplopia; Z82.49 Family history of ischemic heart disease and other diseases of the circulatory system; H49.02 Third [oculomotor] nerve palsy, left eye; L93.2 Other local lupus erythematosus; I34.0 Nonrheumatic mitral (valve) insufficiency; I48.0 Paroxysmal atrial fibrillation; Z86.61 Personal history of infections of the central nervous system; I10 Essential (primary) hypertension